=== PATIENT | male | born 1955 | race Caucasian/White ===

== ENCOUNTER 2017-03-14 11:44 | Inpatient (IN) | payer MEDICARE, MEDICAID ==
[2017-03-14] VITALS (9 sets, daily range): BP systolic 111–160; BP diastolic 64–89
[~2017-03-14] VITALS: Ht 188 cm; Wt 182.1 kg
[~2017-03-14 11:44] MED LIST: ATEN50TA PO; ESOM40CA PO; FENO145T38 PO; FURO80TA87 PO; GABA-338 PO; IBUP-1984 PO; LANTUS SUBCUT; LEVO125T PO; MECL12.584 PO; METF500T7 PO; NITR0.4T51 SL; POTA8TAB46 PO; PREG75CA30 PO; RANI300T7 PO; TEMA30CA5 PO
[2017-03-14] MEDS ORDERED: normal saline 1000ML IV soln IVB ONE ×2 (12:00→13:35)
[2017-03-14 12:13] LABS: BASOPHILS # (AUTO) 0.1 X10'3 (0-0.2); BASOPHILS % (AUTO) 0.9 % (0-1); EOSINOPHILS # (AUTO) 0.2 X10'3 (0-0.9); EOSINOPHILS % (AUTO) 1.8 % (0-6); HEMATOCRIT 42.3 % (42.0-52.0); HEMOGLOBIN 14.2 g/dl (14.0-17.9); LYMPHOCYTES # (AUTO) 1.8 X10'3 (1.1-4.8); LYMPHOCYTES % (AUTO) 17.7 % (21-51); MEAN CORPUSCULAR HEMOGLOBIN 27.7 PG (27.0-31.0); MEAN CORPUSCULAR HGB CONC 33.5 % (33.0-36.5); MEAN CORPUSCULAR VOLUME 82.7 FL (78-98); MEAN PLATELET VOLUME 8.5 FL (7.4-10.4); MONOCYTES # (AUTO) 0.7 X10'3 (0-0.9); MONOCYTES % (AUTO) 7.1 % (2-12); NEUTROPHILS # (AUTO) 7.5 X10'3 (1.8-7.7); NEUTROPHILS % (AUTO) 72.5 % (42-75); PLATELET COUNT 286 X10'3 (140-440); RED BLOOD COUNT 5.11 X10'6 (4.70-6.10); RED CELL DISTRIBUTION WIDTH 14.9 % (11.5-14.5); WHITE BLOOD COUNT 10.3 X10'3 (4.5-11.0)
[2017-03-14 12:23] LABS: PARTIAL THROMBOPLASTIN TIME 27 SECONDS (22-32); PROTHROMBIN TIME 10.7 SECONDS (9.0-12.0)
[2017-03-14 12:35] LABS: ALANINE AMINOTRANSFERASE 95 U/L (12-78); ALBUMIN 3.1 G/DL (3.4-5.0); ALKALINE PHOSPHATASE 260 IU/L (46-116); ANION GAP 9 (8-16); ASPARTATE AMINO TRANSFERASE 74 U/L (10-37); BILIRUBIN,TOTAL 4.9 MG/DL (0.1-1.0); BLOOD UREA NITROGEN 20 MG/DL (7-18); BUN/CREATININE RATIO 16.7 (5.4-32.0); CALCIUM 9.5 MG/DL (8.5-10.1); CHLORIDE 102 MMOL/L (99-107); GLUCOSE 120 MG/DL (70-104); MAGNESIUM 1.6 MG/DL (1.5-2.4); POTASSIUM 3.8 MMOL/L (3.5-5.1); SODIUM 141 MMOL/L (135-145); TOTAL CARBON DIOXIDE 29.7 MMOL/L (24-32); eGFR 61 ML/MIN
[2017-03-14 12:36] LABS: ALBUMIN/GLOBULIN RATIO 0.6 (1.1-1.5); TOTAL PROTEIN 7.9 G/DL (6.4-8.2)
[2017-03-14] MEDS ORDERED: ketorolac trometh. 30mg/ml inj. IV ONE (12:45)
[2017-03-14] MEDS ORDERED: HYDROcodone/acetaminophen 5mg/325mg tablet PO ONE (12:45)
[2017-03-14 13:14] LABS: LIPASE 143 U/L (73-393)
[2017-03-14] MEDS ORDERED: HYDROmorphone 2mg/ml vial IV ONE (13:35)
[2017-03-14] MEDS ORDERED: TEMA15CA PO (14:13)
[2017-03-14] MEDS ORDERED: ESOM40CA PO (14:13)
[2017-03-14] MEDS ORDERED: magnesium hydroxide 30ml (MOM) UD suspension PO PRN (14:25)
[2017-03-14] MEDS ORDERED: ondansetron/PF 4mg/2ml inj IV PRN (14:25)
[2017-03-14] MEDS: levoFLOXACIN-Levaquin 500mg/D5 100 ML IV SCH (14:25)
[2017-03-14] MEDS ORDERED: magnesium 4gm in 100ml NS 100 ML IV PRN (14:25)
[2017-03-14] MEDS ORDERED: mag hydrox/Alum hydrox/simeth 30ml oral suspension PO PRN (14:25)
[2017-03-14] MEDS ORDERED: potassium Cl 40MEQ/NS 500ml 500 ML IV PRN ×2 (14:25)
[2017-03-14] MEDS ORDERED: magnesium 2GM in 50ml NS 50 ML IV PRN (14:25)
[2017-03-14] MEDS ORDERED: acetaminophen 325mg tablet PO PRN (14:25)
[2017-03-14] MEDS ORDERED: potassium Cl 20 mEq SR tablet PO PRN ×2 (14:25)
[2017-03-14] MEDS ORDERED: bisacodyl 10mg suppository rectal RC PRN (14:25)
[2017-03-14] MEDS ORDERED: magnesium Cl slow-release 64mg tablet PO PRN (14:25)
[2017-03-14] MEDS ORDERED: morphine 2 MG/ML inj. syringe IV PRN ×2 (14:25)
[2017-03-14] MEDS ORDERED: HYDROcodone/acetaminophen 5mg/325mg tablet PO PRN (14:25)
[2017-03-14] MEDS ORDERED: dextrose 50%-water 50ml dispensing syringe IV PRN ×2 (14:35)
[2017-03-14] MEDS ORDERED: dextrose ORAL solution 15 GM/59 ML bottle PO PRN ×2 (14:35)
[2017-03-14] MEDS ORDERED: glucagon, human recombinant 1mg kit SUBCUT PRN (14:35)
[2017-03-14] MEDS ORDERED: MESSAGE TO PHARMACY PO ONE (14:35)
[2017-03-14] MEDS: pantoprazole 40 MG vial IV SCH (14:40)
[2017-03-14] MEDS ORDERED: meperidine/PF 100mg/ml syringe ONE (15:04)
[2017-03-14] MEDS ORDERED: fentaNYL/PF 50MCG/1 ML 2ML syringe ONE (15:04)
[2017-03-14] MEDS ORDERED: MIDAZolam 1mg/ml 10ml vial ONE (15:04)
[2017-03-14] MEDS ORDERED: diphenhydrAMINE 50 mg/ml inj ONE (15:05)
[2017-03-14] MEDS ORDERED: LIDOcaine Viscous 15ml cup ONE (15:05)
[2017-03-14] MEDS ORDERED: glucagon, human recombinant 1mg kit ONE (15:05)
[2017-03-14] MEDS ORDERED: iohexol 300 MG/1 ML 50ml polymer ONE (15:06)
[2017-03-14 15:46] LABS: HEMOGLOBIN A1C 6.2 % (4.5-6.2)
[2017-03-14] MEDS ORDERED: normal saline 1000ml 1,000 ML IV SCH (15:46)
[2017-03-14] MEDS ORDERED: meperidine/PF 100mg/ml syringe IV PRN (15:50)
[2017-03-14] MEDS ORDERED: MIDAZolam 5mg/5ml vial IV PRN (15:50)
[2017-03-14] MEDS ORDERED: simethicone 40mg/0.6ml oral drops 30ml MC ONE (15:50)
[2017-03-14] MEDS ORDERED: iohexol 300 MG/1 ML 50ml polymer IV ONE (15:50)
[2017-03-14] MEDS ORDERED: fentaNYL/PF 50MCG/1 ML 2ML syringe IV PRN (15:50)
[2017-03-14] MEDS ORDERED: LIDOcaine Viscous 15ml cup PO ONE (15:50)
[2017-03-14] MEDS ORDERED: glucagon, human recombinant 1mg kit IV PRN (15:50)
[2017-03-14] MEDS ORDERED: diphenhydrAMINE 50 mg/ml inj IV ONE (15:50)
[2017-03-14] MEDS: meclizine 12.5mg tablet PO SCH ×2 (19:47→21:00)
[2017-03-14] MEDS: potassium Cl 20mEq in NS 1,000 ML IV SCH (19:47)
[2017-03-14] MEDS: insulin glargine (Lantus) pen - multi-dose SQ SCH (20:00)
[2017-03-14] MEDS: pregabalin 75mg capsule PO SCH (22:06)
[2017-03-14] MEDS: docusate sod 100mg capsule PO SCH (22:06)
[2017-03-14] MEDS: temazepam 15mg capsule PO PRN (23:38)
[2017-03-15] MEDS: potassium Cl 20mEq in NS 1,000 ML IV SCH ×3 (00:24→21:30)
[2017-03-15] MEDS: insulin glargine (Lantus) pen - multi-dose SQ SCH ×2 (07:47→21:32)
[2017-03-15 07:49] VITALS: BP 124/69
[2017-03-15] MEDS: K and/or MAG REPLACEMENT MC SCH (08:00)
[2017-03-15] MEDS: levoFLOXACIN-Levaquin 500mg/D5 100 ML IV SCH (08:11)
[2017-03-15] MEDS: pantoprazole 40 MG vial IV SCH (08:11)
[2017-03-15 09:06] LABS: ALANINE AMINOTRANSFERASE 81 U/L (12-78); ALBUMIN 2.5 G/DL (3.4-5.0); ALKALINE PHOSPHATASE 230 IU/L (46-116); ANION GAP 8 (8-16); ASPARTATE AMINO TRANSFERASE 66 U/L (10-37); BILIRUBIN,TOTAL 6.2 MG/DL (0.1-1.0); BLOOD UREA NITROGEN 17 MG/DL (7-18); CALCIUM 8.4 MG/DL (8.5-10.1); CHLORIDE 104 MMOL/L (99-107); GLUCOSE 124 MG/DL (70-104); LIPASE 118 U/L (73-393); POTASSIUM 3.9 MMOL/L (3.5-5.1); SODIUM 138 MMOL/L (135-145); TOTAL CARBON DIOXIDE 25.8 MMOL/L (24-32); eGFR 75 ML/MIN
[2017-03-15 09:12] LABS: MAGNESIUM 1.5 MG/DL (1.5-2.4)
[2017-03-15 09:15] LABS: ALBUMIN/GLOBULIN RATIO 0.6 (1.1-1.5); TOTAL PROTEIN 6.5 G/DL (6.4-8.2)
[2017-03-15 09:51] LABS: BASOPHILS % (AUTO) 0.5 % (0-1); EOSINOPHILS # (AUTO) 0.1 X10'3 (0-0.9); EOSINOPHILS % (AUTO) 1.2 % (0-6); LYMPHOCYTES # (AUTO) 0.9 X10'3 (1.1-4.8); LYMPHOCYTES % (AUTO) 10.5 % (21-51); MEAN CORPUSCULAR HEMOGLOBIN 28.5 PG (27.0-31.0); MEAN CORPUSCULAR HGB CONC 35.1 % (33.0-36.5); MEAN CORPUSCULAR VOLUME 81.2 FL (78-98); MEAN PLATELET VOLUME 9.4 FL (7.4-10.4); MONOCYTES # (AUTO) 0.9 X10'3 (0-0.9); NEUTROPHILS # (AUTO) 6.6 X10'3 (1.8-7.7); NEUTROPHILS % (AUTO) 76.8 % (42-75); PLATELET COUNT 244 X10'3 (140-440); RED BLOOD COUNT 4.56 X10'6 (4.70-6.10); WHITE BLOOD COUNT 8.6 X10'3 (4.5-11.0)
[2017-03-15] MEDS: meclizine 12.5mg tablet PO SCH ×4 (11:32→21:32)
[2017-03-15] MEDS: levoTHYROXINE 175mcg tablet PO SCH (11:32)
[2017-03-15] MEDS: docusate sod 100mg capsule PO SCH ×2 (11:32→21:30)
[2017-03-15] MEDS: pregabalin 75mg capsule PO SCH ×2 (11:32→21:31)
[2017-03-15] MEDS: fenofibrate 145mg tablet PO SCH (11:36)
[2017-03-15 12:00] VITALS: BP 136/72
[2017-03-15 15:20] VITALS: BP 136/72
[2017-03-15] MEDS: lactobacillus rhamnosus 10,000 MMU CELLS/CAPSULE PO SCH (17:29)
[2017-03-15 19:30] VITALS: BP 118/66
[2017-03-15 23:30] VITALS: BP 116/64
[2017-03-15] MEDS: temazepam 15mg capsule PO PRN (23:34)
[2017-03-16] MEDS: HYDROcodone/acetaminophen 10/325mg tab PO PRN ×2 (02:40→20:10)
[2017-03-16 06:00] LABS: ANION GAP 8 (8-16); BLOOD UREA NITROGEN 12 MG/DL (7-18); BUN/CREATININE RATIO 13.3 (5.4-32.0); CALCIUM 8.5 MG/DL (8.5-10.1); CHLORIDE 106 MMOL/L (99-107); GLUCOSE 162 MG/DL (70-104); POTASSIUM 4.1 MMOL/L (3.5-5.1); SODIUM 140 MMOL/L (135-145); eGFR 85 ML/MIN
[2017-03-16 06:01] LABS: ALANINE AMINOTRANSFERASE 65 U/L (12-78); ALBUMIN 2.4 G/DL (3.4-5.0); ALKALINE PHOSPHATASE 226 IU/L (46-116); ASPARTATE AMINO TRANSFERASE 47 U/L (10-37); BILIRUBIN,TOTAL 4.4 MG/DL (0.1-1.0); MAGNESIUM 1.5 MG/DL (1.5-2.4)
[2017-03-16 06:09] LABS: ALBUMIN/GLOBULIN RATIO 0.6 (1.1-1.5); TOTAL PROTEIN 6.5 G/DL (6.4-8.2)
[2017-03-16 06:34] VITALS: BP 116/64
[2017-03-16 07:00] VITALS: BP 103/69
[2017-03-16] MEDS: levoTHYROXINE 175mcg tablet PO SCH (07:00)
[2017-03-16] MEDS: lactobacillus rhamnosus 10,000 MMU CELLS/CAPSULE PO SCH ×2 (07:30→17:06)
[2017-03-16] MEDS: pantoprazole 40mg Tablet.DR PO SCH (07:30)
[2017-03-16] MEDS: potassium Cl 20mEq in NS 1,000 ML IV SCH ×2 (07:53→17:07)
[2017-03-16] MEDS: meclizine 12.5mg tablet PO SCH ×4 (07:59→20:10)
[2017-03-16] MEDS: pregabalin 75mg capsule PO SCH ×2 (07:59→20:10)
[2017-03-16] MEDS: fenofibrate 145mg tablet PO SCH (07:59)
[2017-03-16] MEDS: docusate sod 100mg capsule PO SCH ×2 (07:59→20:10)
[2017-03-16] MEDS: insulin glargine (Lantus) pen - multi-dose SQ SCH ×2 (07:59→20:00)
[2017-03-16] MEDS ORDERED: BUPIVAcaine/PF 2.5 mg/ml (0.25%) 30ml vial ONE (08:00)
[2017-03-16] MEDS ORDERED: LIDOcaine 1% 30ml vial 30 ML ONE (08:00)
[2017-03-16] MEDS: K and/or MAG REPLACEMENT MC SCH (08:00)
[2017-03-16] MEDS: levoFLOXACIN 500mg tablet PO SCH ×2 (11:00→17:07)
[2017-03-16] MEDS ORDERED: midazolam 2 mg/2 ml injection ONE (11:17)
[2017-03-16] MEDS ORDERED: fentaNYL/PF 50MCG/1 ML 2ML syringe ONE ×2 (11:17→13:19)
[2017-03-16 13:00] VITALS: BP 126/75
[2017-03-16] MEDS ORDERED: etomidate 2mg/ml inj. ONE (13:18)
[2017-03-16] MEDS ORDERED: rocuronium 10mg/ml inj IV ONE (13:18)
[2017-03-16] MEDS ORDERED: LIDOcaine 2% (20mg/ml) 5ml vial ONE (13:18)
[2017-03-16] MEDS ORDERED: aminophylline 250mg/10ml inj. IV PRN (15:10)
[2017-03-16] MEDS ORDERED: regadenoson 0.4mg/5ml syringe IV ONE (15:10)
[2017-03-16] MEDS ORDERED: nitroGLYCERIN 0.4mg SUBLingual tab SL PRN (15:10)
[2017-03-16] MEDS ORDERED: metoprolol tartrate 1mg/ml inj IV PRN (15:10)
[2017-03-16] MEDS ORDERED: morphine 5 MG/ML injection IV PRN (16:21)
[2017-03-16 20:00] VITALS: BP 131/70
[2017-03-16] MEDS: temazepam 15mg capsule PO PRN (23:10)
[2017-03-16 23:30] VITALS: BP 116/67
[2017-03-17] VITALS (12 sets, daily range): BP systolic 94–137; BP diastolic 56–78
[2017-03-17] MEDS: potassium Cl 20mEq in NS 1,000 ML IV SCH ×3 (03:07→22:24)
[2017-03-17 06:41] LABS: ALANINE AMINOTRANSFERASE 57 U/L (12-78); ALBUMIN 2.5 G/DL (3.4-5.0); ALBUMIN/GLOBULIN RATIO 0.6 (1.1-1.5); ALKALINE PHOSPHATASE 203 IU/L (46-116); ANION GAP 6 (8-16); ASPARTATE AMINO TRANSFERASE 33 U/L (10-37); BILIRUBIN,TOTAL 2.8 MG/DL (0.1-1.0); BLOOD UREA NITROGEN 10 MG/DL (7-18); BUN/CREATININE RATIO 11.1 (5.4-32.0); CALCIUM 8.4 MG/DL (8.5-10.1); CHLORIDE 104 MMOL/L (99-107); GLUCOSE 136 MG/DL (70-104); MAGNESIUM 1.4 MG/DL (1.5-2.4); POTASSIUM 3.8 MMOL/L (3.5-5.1); SODIUM 139 MMOL/L (135-145); TOTAL CARBON DIOXIDE 29.1 MMOL/L (24-32); TOTAL PROTEIN 6.7 G/DL (6.4-8.2); eGFR 85 ML/MIN
[2017-03-17] MEDS: levoTHYROXINE 175mcg tablet PO SCH (07:00)
[2017-03-17] MEDS: lactobacillus rhamnosus 10,000 MMU CELLS/CAPSULE PO SCH ×2 (07:30→17:46)
[2017-03-17] MEDS: pantoprazole 40mg Tablet.DR PO SCH (07:30)
[2017-03-17] MEDS: meclizine 12.5mg tablet PO SCH ×4 (07:31→21:00)
[2017-03-17] MEDS: pregabalin 75mg capsule PO SCH ×2 (07:32→21:01)
[2017-03-17] MEDS: fenofibrate 145mg tablet PO SCH (07:32)
[2017-03-17] MEDS: insulin glargine (Lantus) pen - multi-dose SQ SCH ×2 (07:32→20:00)
[2017-03-17] MEDS: docusate sod 100mg capsule PO SCH ×2 (07:32→21:01)
[2017-03-17] MEDS: K and/or MAG REPLACEMENT MC SCH (08:00)
[2017-03-17] MEDS ORDERED: aminophylline inj. 10 ML IV ONE (08:51)
[2017-03-17] MEDS ORDERED: regadenoson 0.4mg/5ml syringe IV ONE (08:51)
[2017-03-17] MEDS: levoFLOXACIN 500mg tablet PO SCH (11:56)
[2017-03-17] MEDS ORDERED: clindamycin-Cleocin 900mg/D5W 50 ML IV ONE (18:25)
[2017-03-17] MEDS ORDERED: potassium Cl 40MEQ/NS 500ml 500 ML IV PRN ×2 (23:45)
[2017-03-17] MEDS ORDERED: magnesium 4gm in 100ml NS 100 ML IV PRN (23:45)
[2017-03-17] MEDS ORDERED: magnesium 2GM in 50ml NS 50 ML IV PRN (23:45)
[2017-03-17] MEDS ORDERED: potassium Cl 20 mEq SR tablet PO PRN ×2 (23:45)
[2017-03-18] VITALS (19 sets, daily range): BP systolic 104–148; BP diastolic 53–92
[2017-03-18] MEDS: HYDROcodone/acetaminophen 10/325mg tab PO PRN ×3 (00:04→23:32)
[2017-03-18] MEDS: temazepam 15mg capsule PO PRN ×2 (00:04→23:32)
[2017-03-18] MEDS: magnesium Cl slow-release 64mg tablet PO PRN (00:05)
[2017-03-18] MEDS: potassium Cl 20mEq in NS 1,000 ML IV SCH ×2 (04:49→18:24)
[2017-03-18 06:31] LABS: ALANINE AMINOTRANSFERASE 52 U/L (12-78); ALBUMIN 2.6 G/DL (3.4-5.0); ALBUMIN/GLOBULIN RATIO 0.6 (1.1-1.5); ALKALINE PHOSPHATASE 191 IU/L (46-116); ASPARTATE AMINO TRANSFERASE 27 U/L (10-37); BILIRUBIN,TOTAL 2.3 MG/DL (0.1-1.0); BLOOD UREA NITROGEN 12 MG/DL (7-18); BUN/CREATININE RATIO 13.3 (5.4-32.0); CALCIUM 8.9 MG/DL (8.5-10.1); GLUCOSE 172 MG/DL (70-104); MAGNESIUM 1.5 MG/DL (1.5-2.4); TOTAL PROTEIN 6.9 G/DL (6.4-8.2); eGFR 85 ML/MIN
[2017-03-18] MEDS: levoTHYROXINE 175mcg tablet PO SCH (07:00)
[2017-03-18 07:14] LABS: ANION GAP 5 (8-16); CHLORIDE 103 MMOL/L (99-107); POTASSIUM 3.8 MMOL/L (3.5-5.1); SODIUM 139 MMOL/L (135-145)
[2017-03-18] MEDS: lactobacillus rhamnosus 10,000 MMU CELLS/CAPSULE PO SCH ×2 (07:30→17:29)
[2017-03-18] MEDS: pantoprazole 40mg Tablet.DR PO SCH (07:30)
[2017-03-18] MEDS: docusate sod 100mg capsule PO SCH ×2 (08:00→21:03)
[2017-03-18] MEDS: pregabalin 75mg capsule PO SCH ×2 (08:00→21:02)
[2017-03-18] MEDS: fenofibrate 145mg tablet PO SCH (08:00)
[2017-03-18] MEDS: K and/or MAG REPLACEMENT MC SCH (08:00)
[2017-03-18] MEDS: meclizine 12.5mg tablet PO SCH ×4 (08:00→21:02)
[2017-03-18] MEDS: insulin glargine (Lantus) pen - multi-dose SQ SCH ×2 (08:00→21:06)
[2017-03-18] MEDS ORDERED: clindamycin-Cleocin 900mg/D5W 50 ML IV ONE (08:05)
[2017-03-18] MEDS ORDERED: LIDOcaine 1% 30ml vial 30 ML ONE (09:28)
[2017-03-18] MEDS ORDERED: BUPIVAcaine/PF 2.5 mg/ml (0.25%) 30ml vial ONE (09:28)
[2017-03-18] MEDS ORDERED: meperidine/PF 25mg/ml syringe IV PRN ×3 (09:30)
[2017-03-18] MEDS ORDERED: ringers solution, lacted 1,000 ML IV SCH (09:30)
[2017-03-18] MEDS ORDERED: ondansetron/PF 4mg/2ml inj IV PRN (09:30)
[2017-03-18] MEDS ORDERED: morphine 2 MG/ML inj. syringe IV PRN ×2 (09:30)
[2017-03-18] MEDS ORDERED: proCHLORperazine 10 MG/2 ml inj IV PRN (09:30)
[2017-03-18] MEDS ORDERED: fentaNYL/PF 50MCG/1 ML 2ML syringe ONE (09:36)
[2017-03-18] MEDS ORDERED: midazolam 2 mg/2 ml injection ONE (09:37)
[2017-03-18] MEDS ORDERED: LIDOcaine 2% (20mg/ml) 5ml vial ONE (09:41)
[2017-03-18] MEDS ORDERED: succinylcholine 20mg/ml inj IV ONE (09:41)
[2017-03-18] MEDS ORDERED: propofol inj 20 ML IV ONE (09:41)
[2017-03-18] MEDS ORDERED: sevoflurane 250ml liquid IH ONE (10:00)
[2017-03-18] MEDS ORDERED: clindamycin phosphate 150mg/ml inj. ONE (10:33)
[2017-03-18] MEDS ORDERED: LIDOcaine 1% 30ml vial IJ ONE (10:56)
[2017-03-18] MEDS: levoFLOXACIN 500mg tablet PO SCH (11:00)
[2017-03-18] MEDS ORDERED: ondansetron/PF 4mg/2ml inj ONE (11:39)
[2017-03-18] MEDS ORDERED: ePHEDrine 50MG/ML INJ. ONE (11:39)
[2017-03-18] MEDS ORDERED: neostigmine methylsulfate 1 MG/ML 10ml vial ONE (11:39)
[2017-03-18] MEDS ORDERED: glycopyrrolate 0.2mg/ml inj ONE (11:39)
[2017-03-18] MEDS ORDERED: HYDROcodone/acetaminophen 5mg/325mg tablet PO PRN (12:05)
[2017-03-18] MEDS: morphine 5 MG/ML injection IV PRN (19:44)
[2017-03-19] VITALS (8 sets, daily range): BP systolic 99–135; BP diastolic 53–68
[2017-03-19] MEDS: potassium Cl 20mEq in NS 1,000 ML IV SCH ×2 (02:53→14:24)
[2017-03-19] MEDS: morphine 5 MG/ML injection IV PRN (03:01)
[2017-03-19 06:51] LABS: ALANINE AMINOTRANSFERASE 52 U/L (12-78); ALBUMIN 2.7 G/DL (3.4-5.0); ALBUMIN/GLOBULIN RATIO 0.7 (1.1-1.5); ALKALINE PHOSPHATASE 177 IU/L (46-116); ANION GAP 9 (8-16); ASPARTATE AMINO TRANSFERASE 43 U/L (10-37); BILIRUBIN,TOTAL 2.3 MG/DL (0.1-1.0); BLOOD UREA NITROGEN 10 MG/DL (7-18); BUN/CREATININE RATIO 11.1 (5.4-32.0); CHLORIDE 101 MMOL/L (99-107); GLUCOSE 197 MG/DL (70-104); MAGNESIUM 1.2 MG/DL (1.5-2.4); SODIUM 138 MMOL/L (135-145); TOTAL CARBON DIOXIDE 27.6 MMOL/L (24-32); TOTAL PROTEIN 6.8 G/DL (6.4-8.2); eGFR 85 ML/MIN
[2017-03-19] MEDS ORDERED: magnesium 4gm in 100ml NS 100 ML IV PRN ×2 (07:00→07:15)
[2017-03-19] MEDS ORDERED: potassium Cl 40MEQ/NS 500ml 500 ML IV PRN ×4 (07:00→07:15)
[2017-03-19] MEDS ORDERED: magnesium Cl slow-release 64mg tablet PO PRN ×2 (07:00→07:15)
[2017-03-19] MEDS ORDERED: magnesium 2GM in 50ml NS 50 ML IV PRN ×2 (07:00→07:15)
[2017-03-19] MEDS ORDERED: potassium Cl 20 mEq SR tablet PO PRN ×4 (07:00→07:15)
[2017-03-19] MEDS: meclizine 12.5mg tablet PO SCH ×2 (07:04→12:42)
[2017-03-19] MEDS: pregabalin 75mg capsule PO SCH (07:04)
[2017-03-19] MEDS: insulin glargine (Lantus) pen - multi-dose SQ SCH (07:04)
[2017-03-19] MEDS: pantoprazole 40mg Tablet.DR PO SCH (07:04)
[2017-03-19] MEDS: docusate sod 100mg capsule PO SCH (07:04)
[2017-03-19] MEDS: lactobacillus rhamnosus 10,000 MMU CELLS/CAPSULE PO SCH (07:04)
[2017-03-19] MEDS: levoTHYROXINE 175mcg tablet PO SCH (07:05)
[2017-03-19] MEDS: fenofibrate 145mg tablet PO SCH (07:05)
[2017-03-19] MEDS: magnesium Cl slow-release 64mg tablet PO PRN (07:07)
[2017-03-19] MEDS: K and/or MAG REPLACEMENT MC SCH (07:10)
[2017-03-19] MEDS: insulin Lispro (HumaLOG) vial - multi-dose SQ SCH ×2 (08:05→13:29)
[2017-03-19] MEDS: HYDROcodone/acetaminophen 10/325mg tab PO PRN (10:00)
[2017-03-19] MEDS ORDERED: HYDR-569 PO ×2 (12:11→12:13)
[2017-03-19] MEDS: levoFLOXACIN 500mg tablet PO SCH (12:42)
[2017-03-19] MEDS ORDERED: magnesium oxide 400mg tablet PO ONE (14:05)
== END 2017-03-19 15:30 | disposition home or self-care (01) | DRG 335 ==
LOC: ER 11:45 → ED HOLD 13:34 → EDBEDREQ 21:50 → MED 3N 22:44
PROVIDERS: ADMIT Internal Medicine; ATTEND Internal Medicine
PROC: 0FC98ZZ Extirpation of Matter from Common Bile Duct, Via Natural or Artificial Opening Endoscopic (ICD-10-PCS; 2017-03-14)
PROC: 0F798DZ Dilation of Common Bile Duct with Intraluminal Device, Via Natural or Artificial Opening Endoscopic (ICD-10-PCS; 2017-03-14)
PROC: BF131ZZ Fluoroscopy of Gallbladder and Bile Ducts using Low Osmolar Contrast (ICD-10-PCS; 2017-03-14)
PROC: 4A02XM4 Measurement of Cardiac Total Activity, External Approach (ICD-10-PCS; 2017-03-17)
PROC: 3E073KZ Introduction of Other Diagnostic Substance into Coronary Artery, Percutaneous Approach (ICD-10-PCS; 2017-03-17)
PROC: 0FT44ZZ Resection of Gallbladder, Percutaneous Endoscopic Approach (ICD-10-PCS; 2017-03-18)
PROC: 0DNU4ZZ Release Omentum, Percutaneous Endoscopic Approach (ICD-10-PCS; 2017-03-18)
PROC: 0WQF0ZZ Repair Abdominal Wall, Open Approach (ICD-10-PCS; principal; 2017-03-18 10:03)
DX: K42.0 Umbilical hernia with obstruction, without gangrene (principal); E43 Unspecified severe protein-calorie malnutrition; E66.01 Morbid (severe) obesity due to excess calories; I11.0 Hypertensive heart disease with heart failure; I50.9 Heart failure, unspecified; K80.31 Calculus of bile duct with cholangitis, unspecified, with obstruction; K80.70 Calculus of gallbladder and bile duct without cholecystitis without obstruction; Z68.43 Body mass index [BMI] 50.0-59.9, adult; E86.0 Dehydration; E11.9 Type 2 diabetes mellitus without complications; Z96.653 Presence of artificial knee joint, bilateral; J45.909 Unspecified asthma, uncomplicated; E03.9 Hypothyroidism, unspecified; R07.89 Other chest pain; K21.9 Gastro-esophageal reflux disease without esophagitis; K66.0 Peritoneal adhesions (postprocedural) (postinfection); Z60.2 Problems related to living alone; Z56.0 Unemployment, unspecified; Z88.0 Allergy status to penicillin; Z79.899 Other long term (current) drug therapy; Z79.4 Long term (current) use of insulin; Z82.41 Family history of sudden cardiac death; Z82.49 Family history of ischemic heart disease and other diseases of the circulatory system; Z80.9 Family history of malignant neoplasm, unspecified
CPT/HCPCS: 36415; 43274; 71045; 76700; 78452; 80053; 82948; 83036; 83690; 83735; 83880; 84443; 84484; 85025; 85610; 85730; 87070; 88304; 93005; 93017; 96374; 99285; A4620; A7000; A9500; C9113; G0500; J0280; J0330; J1170; J1200; J1610; J1815; J1885; J1956; J2001; J2175; J2250; J2270; J2405; J2704; J2710; J3010; J3490; J7030; J7120; J8597; Q9967

== ENCOUNTER 2019-05-19 11:59 | Emergency (ER) | payer BC, MEDICAID ==
[~2019-05-19] VITALS: Ht 188 cm; Wt 156.8 kg
[~2019-05-19 11:59] MED LIST changes: -ATEN50TA PO; -ESOM40CA PO; +HYDR-4383 PO; +MECL-184 PO; -MECL12.584 PO; +METF500T20 PO; -METF500T7 PO; -NITR0.4T51 SL; +TEMA15CA PO; -TEMA30CA5 PO
[2019-05-19] MEDS ORDERED: SULF1TAB49 PO (12:47)
[2019-05-19] MEDS ORDERED: CEPH-572 PO (12:47)
[2019-05-19] MEDS ORDERED: TETanus/Pertussis (Acell)/Diphther VAC/PF (Tdap-Adult) 0.5ml syringe IMVAC ONE (12:50)
[2019-05-19] MEDS ORDERED: cephalexin 250mg capsule PO ONE (12:50)
[2019-05-19] MEDS ORDERED: acetaminophen 325mg tablet PO ONE (13:05)
[2019-05-19 13:30] VITALS: BP 128/75
[2019-05-19] MEDS ORDERED: MYCOL30CR TP (13:42)
== END 2019-05-19 14:19 | disposition home or self-care (01) ==
LOC: ER 11:59
DX: S90.425A Blister (nonthermal), left lesser toe(s), initial encounter (principal); E11.9 Type 2 diabetes mellitus without complications; I50.9 Heart failure, unspecified; I11.0 Hypertensive heart disease with heart failure; J45.909 Unspecified asthma, uncomplicated; K21.9 Gastro-esophageal reflux disease without esophagitis; E03.9 Hypothyroidism, unspecified; G89.29 Other chronic pain; Z98.890 Other specified postprocedural states; Z60.2 Problems related to living alone; Z56.0 Unemployment, unspecified; Z88.0 Allergy status to penicillin; Z79.2 Long term (current) use of antibiotics; Z79.4 Long term (current) use of insulin; Z79.899 Other long term (current) drug therapy; X58.XXXA Exposure to other specified factors, initial encounter; Y93.89 Activity, other specified; Y92.89 Other specified places as the place of occurrence of the external cause; Y99.8 Other external cause status
CPT/HCPCS: 73660; 87070; 87077; 87186; 90471; 90715; 99284

== ENCOUNTER 2020-02-25 09:16 | Emergency (ER) | payer BC, MEDICAID ==
[~2020-02-25] VITALS: Ht 188 cm; Wt 149.8 kg
[~2020-02-25 09:16] MED LIST changes: +METF-900 PO; -METF500T20 PO; +MYCOL30CR TP
[2020-02-25] MEDS ORDERED: potassium Cl 20 mEq SR tablet PO STA (09:24)
[2020-02-25 09:57] LABS: BASOPHILS # (AUTO) 0.1 X10'3 (0-0.2); EOSINOPHILS # (AUTO) 0.1 X10'3 (0-0.9); EOSINOPHILS % (AUTO) 1.1 % (0-6); LYMPHOCYTES # (AUTO) 1.5 X10'3 (1.1-4.8); MEAN CORPUSCULAR HEMOGLOBIN 27.5 PG (27.0-31.0); MEAN CORPUSCULAR HGB CONC 32.6 g/dL (33.0-36.5); MEAN CORPUSCULAR VOLUME 84.6 FL (78-98); MEAN PLATELET VOLUME 9.3 FL (7.4-10.4); MONOCYTES # (AUTO) 0.6 X10'3 (0-0.9); MONOCYTES % (AUTO) 10.9 % (2-12); NEUTROPHILS # (AUTO) 3.1 X10'3 (1.8-7.7); PLATELET COUNT 183 X10'3 (140-440); RED BLOOD COUNT 5.09 X10'6 (4.70-6.10); RED CELL DISTRIBUTION WIDTH 12.6 % (11.5-14.5); WHITE BLOOD COUNT 5.2 X10'3 (4.5-11.0)
[2020-02-25 10:09] LABS: ALANINE AMINOTRANSFERASE 15 U/L (12-78); ALBUMIN 3.1 G/DL (3.4-5.0); ALBUMIN/GLOBULIN RATIO 0.9 (1.1-1.5); ALKALINE PHOSPHATASE 138 IU/L (46-116); ANION GAP 10 (8-16); ASPARTATE AMINO TRANSFERASE 5 U/L (10-37); BILIRUBIN,TOTAL 0.7 MG/DL (0.1-1.0); BLOOD UREA NITROGEN 21 MG/DL (7-18); BUN/CREATININE RATIO 15.4 (5.4-32.0); CALCIUM 7.3 MG/DL (8.5-10.1); CHLORIDE 93 MMOL/L (99-107); CREATININE 1.36 MG/DL (0.60-1.10); POTASSIUM 3.6 MMOL/L (3.5-5.1); SODIUM 129 MMOL/L (135-145); TOTAL CARBON DIOXIDE 26.2 MMOL/L (24-32); TOTAL PROTEIN 6.4 G/DL (6.4-8.2); eGFR 52 ML/MIN
[2020-02-25 10:14] LABS: CLARITY,URINE CLEAR (Clear); COLOR,URINE YELLOW (Yellow); GLUCOSE, URINE >=1000 mg/dl (Neg); KETONES,URINE NEGATIVE (Neg); LEUKOCYTE ESTERASE ,URINE NEGATIVE (Neg); NITRITES, URINE NEGATIVE (Neg); OCCULT BLOOD,URINE NEGATIVE (Neg); PROTEIN,URINE NEGATIVE (Neg); UA COLLECTION TYPE URINAL; UROBILINOGEN,URINE 0.2 E.U/dL (0.2-1.0)
[2020-02-25 10:17] LABS: MAGNESIUM 1.7 MG/DL (1.5-2.4)
[2020-02-25 10:23] LABS: BACTERIA,URINE NONE SEEN /HPF (Neg); RBC,URINE NONE SEEN /HPF (0-2); SQUAMOUS EPITHELIAL CELL,UR NONE SEEN /LPF (FEW); WBC,URINE NONE SEEN /HPF (0-4); YEAST FEW /HPF (NEGATIVE)
[2020-02-25] MEDS ORDERED: insulin regular, human 10 units/0.1 ml syringe SQ ONE ×2 (10:35→12:05)
[2020-02-25] MEDS ORDERED: normal saline 1000ML IV soln IVB ONE (10:35)
[2020-02-25] MEDS ORDERED: CHOL10006 PO (11:23)
[2020-02-25] MEDS ORDERED: AMIT25TA10 PO (14:03)
[2020-02-25] MEDS ORDERED: ASPI-920 PO (14:03)
[2020-02-25] MEDS ORDERED: ATOR40TA PO (14:03)
[2020-02-25] MEDS ORDERED: MYCOL30CR TP (14:03)
[2020-02-25] MEDS ORDERED: LIRA0.6P2 SUBCUT (14:04)
[2020-02-25] MEDS ORDERED: HYDR-4353 PO (14:04)
[2020-02-25] MEDS ORDERED: IBUP-1984 PO (14:04)
[2020-02-25 14:35] LABS: ETHANOL < 0.010 GM/DL (0.0-0.010)
[2020-02-25 14:38] LABS: URINE AMPHETAMINE SCREEN NEGATIVE (Neg); URINE BARBITUATE SCREEN NEGATIVE (Neg); URINE BENZODIAZEPINES SCREEN NEGATIVE (Neg); URINE CANNABINOID SCREEN NEGATIVE (Neg); URINE COCAINE SCREEN NEGATIVE (Neg); URINE METHADONE SCREEN NEGATIVE (Neg); URINE OPIATE SCREEN NEGATIVE (Neg); URINE PHENCYCLIDINE SCREEN NEGATIVE (Neg)
[2020-02-25 15:38] VITALS: BP 109/74
[2020-02-27 02:25] LABS: GLUCOSE 806 MG/DL (70-104)
== END 2020-02-25 15:40 | disposition home or self-care (01) ==
LOC: ER 09:16
DX: S90.511A Abrasion, right ankle, initial encounter (principal); E11.65 Type 2 diabetes mellitus with hyperglycemia; E11.00 Type 2 diabetes mellitus with hyperosmolarity without nonketotic hyperglycemic-hyperosmolar coma (NKHHC); R55 Syncope and collapse; M25.561 Pain in right knee; I11.0 Hypertensive heart disease with heart failure; I50.9 Heart failure, unspecified; J45.909 Unspecified asthma, uncomplicated; E03.9 Hypothyroidism, unspecified; G89.29 Other chronic pain; Z98.890 Other specified postprocedural states; Z60.2 Problems related to living alone; Z56.0 Unemployment, unspecified; Z88.0 Allergy status to penicillin; Z79.82 Long term (current) use of aspirin; Z79.4 Long term (current) use of insulin; Z79.899 Other long term (current) drug therapy; W18.39XA Other fall on same level, initial encounter; Y93.89 Activity, other specified; Y92.89 Other specified places as the place of occurrence of the external cause; Y99.8 Other external cause status
CPT/HCPCS: 36415; 73610; 80053; 80305; 80320; 81001; 82948; 83735; 83880; 84484; 85025; 85610; 93005; 96360; 96361; 99285; J1815; J7030

== ENCOUNTER 2020-03-27 11:41 | Emergency (ER) | payer BC, MEDICAID ==
[~2020-03-27] VITALS: Ht 188 cm; Wt 148.2 kg
[~2020-03-27 11:41] MED LIST changes: +AMIT25TA10 PO; +ASPI-920 PO; +ATOR40TA PO; -FENO145T38 PO; -FURO80TA87 PO; -GABA-338 PO; +HYDR-4353 PO; -HYDR-4383 PO; -LANTUS SUBCUT; -LEVO125T PO; +LIRA0.6P2 SUBCUT; -MECL-184 PO; -METF-900 PO; -POTA8TAB46 PO; -PREG75CA30 PO; -RANI300T7 PO; -TEMA15CA PO
[2020-03-27 13:03] LABS: BASOPHILS # (AUTO) 0.1 X10'3 (0-0.2); EOSINOPHILS # (AUTO) 0.1 X10'3 (0-0.9); EOSINOPHILS % (AUTO) 0.9 % (0-6); HEMATOCRIT 44.6 % (42.0-52.0); HEMOGLOBIN 14.9 g/dl (14.0-17.9); LYMPHOCYTES # (AUTO) 1.7 X10'3 (1.1-4.8); LYMPHOCYTES % (AUTO) 26.9 % (21-51); MEAN CORPUSCULAR HEMOGLOBIN 28.3 PG (27.0-31.0); MEAN CORPUSCULAR HGB CONC 33.3 g/dL (33.0-36.5); MEAN CORPUSCULAR VOLUME 84.8 FL (78-98); MEAN PLATELET VOLUME 8.9 FL (7.4-10.4); MONOCYTES # (AUTO) 0.5 X10'3 (0-0.9); MONOCYTES % (AUTO) 8.6 % (2-12); NEUTROPHILS # (AUTO) 3.9 X10'3 (1.8-7.7); NEUTROPHILS % (AUTO) 62.6 % (42-75); PLATELET COUNT 213 X10'3 (140-440); RED BLOOD COUNT 5.26 X10'6 (4.70-6.10); RED CELL DISTRIBUTION WIDTH 13.3 % (11.5-14.5); WHITE BLOOD COUNT 6.2 X10'3 (4.5-11.0)
[2020-03-27 13:20] LABS: ALANINE AMINOTRANSFERASE 17 U/L (12-78); ALBUMIN 3.6 G/DL (3.4-5.0); ALBUMIN/GLOBULIN RATIO 0.9 (1.1-1.5); ALKALINE PHOSPHATASE 106 IU/L (46-116); ANION GAP 5 (8-16); ASPARTATE AMINO TRANSFERASE 11 U/L (10-37); BILIRUBIN,TOTAL 0.7 MG/DL (0.1-1.0); BLOOD UREA NITROGEN 12 MG/DL (7-18); BUN/CREATININE RATIO 10.8 (5.4-32.0); CALCIUM 9.5 MG/DL (8.5-10.1); CHLORIDE 94 MMOL/L (99-107); CREATININE 1.11 MG/DL (0.60-1.10); MAGNESIUM 1.6 MG/DL (1.5-2.4); POTASSIUM 3.6 MMOL/L (3.5-5.1); SODIUM 130 MMOL/L (135-145); TOTAL PROTEIN 7.4 G/DL (6.4-8.2); eGFR 66 ML/MIN
[2020-03-27] MEDS ORDERED: potassium Cl 10 mEq/100mL bag IV ONE (13:25)
[2020-03-27] MEDS ORDERED: normal saline 1000ML IV soln IVB ONE (13:25)
[2020-03-27] MEDS ORDERED: insulin regular, human 10 units/0.1 ml syringe IV ONE (13:25)
[2020-03-27 13:27] LABS: GLUCOSE 622 MG/DL (70-104)
[2020-03-27 16:50] VITALS: BP 124/86
== END 2020-03-27 16:51 | disposition home or self-care (01) ==
LOC: ER 11:41
DX: E11.65 Type 2 diabetes mellitus with hyperglycemia (principal); R07.89 Other chest pain; R10.13 Epigastric pain; I11.0 Hypertensive heart disease with heart failure; I50.9 Heart failure, unspecified; J45.909 Unspecified asthma, uncomplicated; K21.9 Gastro-esophageal reflux disease without esophagitis; E03.9 Hypothyroidism, unspecified; G89.29 Other chronic pain; Z98.890 Other specified postprocedural states; Z56.0 Unemployment, unspecified; Z88.0 Allergy status to penicillin; Z79.82 Long term (current) use of aspirin; Z79.899 Other long term (current) drug therapy
CPT/HCPCS: 36415; 71045; 80053; 82948; 83735; 84484; 85025; 93005; 96361; 96374; 99285; J1815; J3480; J7030

== ENCOUNTER 2020-12-12 22:05 | Inpatient (IN) | payer BC, MEDICAID ==
[~2020-12-12] VITALS: Ht 188 cm; Wt 155.0 kg
[2020-12-13 00:41] LABS: BASOPHILS # (AUTO) 0.1 X10'3 (0-0.2); BASOPHILS % (AUTO) 0.8 % (0-1); EOSINOPHILS # (AUTO) 0.1 X10'3 (0-0.9); EOSINOPHILS % (AUTO) 0.5 % (0-6); LYMPHOCYTES # (AUTO) 2.1 X10'3 (1.1-4.8); LYMPHOCYTES % (AUTO) 19.2 % (21-51); MEAN CORPUSCULAR HEMOGLOBIN 27.9 PG (27.0-31.0); MEAN CORPUSCULAR HGB CONC 34.1 g/dL (33.0-36.5); MEAN CORPUSCULAR VOLUME 81.9 FL (78-98); MEAN PLATELET VOLUME 8.5 FL (7.4-10.4); MONOCYTES # (AUTO) 1.1 X10'3 (0-0.9); MONOCYTES % (AUTO) 10.4 % (2-12); NEUTROPHILS # (AUTO) 7.6 X10'3 (1.8-7.7); NEUTROPHILS % (AUTO) 69.1 % (42-75); PLATELET COUNT 290 X10'3 (140-440); RED BLOOD COUNT 6.47 X10'6 (4.70-6.10); RED CELL DISTRIBUTION WIDTH 14.2 % (11.5-14.5)
[2020-12-13 00:46] LABS: HEMOGLOBIN 18.1 g/dl (14.0-17.9)
[2020-12-13 00:57] LABS: ALANINE AMINOTRANSFERASE 36 U/L (12-78); ALBUMIN 4.3 G/DL (3.4-5.0); ALBUMIN/GLOBULIN RATIO 0.9 (1.1-1.5); ALKALINE PHOSPHATASE 57 IU/L (46-116); ANION GAP 12 (8-16); BILIRUBIN,TOTAL 0.9 MG/DL (0.1-1.0); BLOOD UREA NITROGEN 59 MG/DL (7-18); BUN/CREATININE RATIO 26.7 (5.4-32.0); CALCIUM 9.3 MG/DL (8.5-10.1); CHLORIDE 97 MMOL/L (99-107); CREATININE 2.21 MG/DL (0.60-1.10); GLUCOSE 165 MG/DL (70-104); SODIUM 136 MMOL/L (135-145); TOTAL CARBON DIOXIDE 26.7 MMOL/L (24-32); TOTAL PROTEIN 8.9 G/DL (6.4-8.2); eGFR 30 ML/MIN
[2020-12-13 00:59] LABS: PARTIAL THROMBOPLASTIN TIME 29 SECONDS (22-32)
[2020-12-13 01:04] LABS: MAGNESIUM 2.1 MG/DL (1.5-2.4)
[2020-12-13 01:05] LABS: ASPARTATE AMINO TRANSFERASE 31 U/L (10-37); POTASSIUM 3.9 MMOL/L (3.5-5.1)
[2020-12-13] MEDS ORDERED: potassium Cl 20 mEq SR tablet PO PRN ×2 (02:20)
[2020-12-13] MEDS ORDERED: ondansetron/PF 4mg/2ml inj IV PRN (02:20)
[2020-12-13] MEDS ORDERED: potassium Cl 40MEQ/1/2NS 520ml 520 ML IV PRN ×2 (02:20)
[2020-12-13] MEDS ORDERED: magnesium 2GM in 50ml NS 50 ML IV PRN (02:20)
[2020-12-13] MEDS ORDERED: morphine 2 MG/ML inj. syringe IV PRN (02:20)
[2020-12-13] MEDS ORDERED: PERFLUTREN PROTEIN-A MICROSPHR (Optison) 0.22 MG/ML 3ML VIAL IV PRN (02:20)
[2020-12-13] MEDS ORDERED: magnesium Cl slow-release 64mg tablet PO PRN (02:20)
[2020-12-13] MEDS ORDERED: HYDROcodone/acetaminophen 5mg/325mg tablet PO PRN (02:20)
[2020-12-13] MEDS ORDERED: magnesium 4gm in 100ml NS 100 ML IV PRN (02:20)
[2020-12-13] MEDS ORDERED: acetaminophen 325mg tablet PO PRN ×2 (02:20)
[2020-12-13] MEDS ORDERED: glucagon, human recombinant 1mg kit SUBCUT PRN (02:25)
[2020-12-13] MEDS ORDERED: dextrose 50%-water 50ml dispensing syringe IV PRN ×2 (02:25)
[2020-12-13] MEDS ORDERED: insulin Lispro (HumaLOG) vial - multi-dose SQ SCH (02:25)
[2020-12-13] MEDS ORDERED: MESSAGE TO PHARMACY PO ONE (02:25)
[2020-12-13] MEDS ORDERED: dextrose ORAL solution 15 GM/59 ML bottle PO PRN ×2 (02:25)
[2020-12-13 02:46] LABS: HEMOGLOBIN A1C 7.2 % (4.5-6.2)
[2020-12-13] MEDS: normal saline 1000ml 1,000 ML IV SCH ×4 (02:54→22:20)
[2020-12-13] MEDS ORDERED: FURO-149 PO (03:21)
--- NOTE | 2020-12-13 04:25 | NUR ---
notified dr aaron about low blood pressure, no change in order
[2020-12-13] MEDS ORDERED: normal saline 1000ml 1,000 ML IV ONE (04:30)
--- NOTE | 2020-12-13 04:32 | NUR ---
new order put after call per dr aaron one time dose NS @ 1000
[2020-12-13] MEDS ORDERED: FURO40TA4 PO (04:51)
[2020-12-13] MEDS ORDERED: IBUP-1985 PO (04:51)
[2020-12-13] MEDS: K and/or MAG REPLACEMENT MC SCH ×2 (06:56→20:00)
[2020-12-13] MEDS: atorvastatin 20mg tablet PO SCH (07:50)
[2020-12-13] MEDS: aspirin 81mg, enteric-coated 1 TAB TABLET.DR PO SCH (07:50)
[2020-12-13] MEDS: heparin, porcine 5000 units/ml vial SQ SCH ×2 (07:51→20:32)
[2020-12-13] MEDS ORDERED: nitroGLYCERIN 0.4mg SUBLingual tab SL PRN (08:35)
[2020-12-13] MEDS ORDERED: metoprolol tartrate 1mg/ml inj IV PRN (08:35)
[2020-12-13] MEDS ORDERED: regadenoson 0.4mg/5ml syringe IV ONE (08:35)
[2020-12-13] MEDS ORDERED: aminophylline 250mg/10ml inj. IV PRN (08:35)
--- NOTE | 2020-12-13 10:00 | NUR ---
PT IN [facility] FOR LEXISCAN TEST ORDERED. PT DIZZY AND LIGHT HEADED UPON POSITION CHANGES. PT HYPOTENSIVE BP ON LEFT 82/53, RETAKEN AND SUBSEQUENTLY 76/52. BP ON RIGHT 89/57. PT BROUGHT BACK TO ER, REPORT GIVEN BEDSIDE TO JONEL. TEST WILL BE ON HOLD UNTIL SBP >100MMHG. ED RN TO NOTIFY .
--- NOTE | 2020-12-13 10:23 | NUR ---
DR IBARRA NOTIFIED OF LOW BP, ORDERS RECEIVED FOR NS BOLUS
[2020-12-13] MEDS ORDERED: normal saline 500ml IV soln 500 ML IV ONE (10:25)
[2020-12-13] MEDS ORDERED: METF-438 PO (13:14)
[2020-12-13] MEDS ORDERED: INSU100I25 SQ (13:14)
[2020-12-13] MEDS ORDERED: POTA8CAP20 PO (13:15)
[2020-12-13] MEDS ORDERED: PREG150C46 PO (13:15)
[2020-12-13 19:00] VITALS: BP 136/75
[2020-12-13] MEDS: amitriptyline 25mg tablet PO SCH (20:29)
[2020-12-13] MEDS: insulin glargine (Lantus) pen - multi-dose SQ SCH (21:00)
[2020-12-13 22:00] VITALS: BP 95/57
[2020-12-13] MEDS: temazepam 15mg capsule PO PRN (23:15)
[2020-12-14] VITALS (7 sets, daily range): BP systolic 87–114; BP diastolic 54–87
[2020-12-14] MEDS: normal saline 1000ml 1,000 ML IV SCH ×3 (05:00→18:20)
[2020-12-14] MEDS ORDERED: pantoprazole 40mg Tablet.DR PO STA (06:24)
--- NOTE | 2020-12-14 06:34 | NUR ---
c/p complaint called in by robert dow on nocs, gave prescribed tx with protonix per md aaron. bp 89/57 map 68, substernal c/p, no radiation, no sob, says c/p started when oob to toilet. a/ox4 hr afib 105
[2020-12-14 06:44] LABS: BASOPHILS # (AUTO) 0.1 X10'3 (0-0.2); BASOPHILS % (AUTO) 0.8 % (0-1); EOSINOPHILS # (AUTO) 0.2 X10'3 (0-0.9); EOSINOPHILS % (AUTO) 1.8 % (0-6); HEMATOCRIT 48.7 % (42.0-52.0); HEMOGLOBIN 16.4 g/dl (14.0-17.9); LYMPHOCYTES # (AUTO) 3.8 X10'3 (1.1-4.8); LYMPHOCYTES % (AUTO) 42.7 % (21-51); MEAN CORPUSCULAR HEMOGLOBIN 27.6 PG (27.0-31.0); MEAN CORPUSCULAR HGB CONC 33.6 g/dL (33.0-36.5); MEAN CORPUSCULAR VOLUME 82.2 FL (78-98); MEAN PLATELET VOLUME 9.1 FL (7.4-10.4); MONOCYTES # (AUTO) 1.1 X10'3 (0-0.9); MONOCYTES % (AUTO) 12.3 % (2-12); NEUTROPHILS # (AUTO) 3.7 X10'3 (1.8-7.7); NEUTROPHILS % (AUTO) 42.4 % (42-75); PLATELET COUNT 248 X10'3 (140-440); RED BLOOD COUNT 5.93 X10'6 (4.70-6.10); RED CELL DISTRIBUTION WIDTH 14.3 % (11.5-14.5); WHITE BLOOD COUNT 8.8 X10'3 (4.5-11.0)
[2020-12-14 07:11] LABS: ASPARTATE AMINO TRANSFERASE 23 U/L (10-37); BILIRUBIN,TOTAL 1.1 MG/DL (0.1-1.0); BLOOD UREA NITROGEN 68 MG/DL (7-18); BUN/CREATININE RATIO 30.6 (5.4-32.0); CHLORIDE 101 MMOL/L (99-107); CHOLESTEROL 73 MG/DL (0-200); CREATININE 2.22 MG/DL (0.60-1.10); GLUCOSE 141 MG/DL (70-104); MAGNESIUM 2.1 MG/DL (1.5-2.4); POTASSIUM 3.8 MMOL/L (3.5-5.1); SODIUM 139 MMOL/L (135-145); eGFR 30 ML/MIN
[2020-12-14 07:12] LABS: ALANINE AMINOTRANSFERASE 32 U/L (12-78); ALBUMIN 3.7 G/DL (3.4-5.0); ALKALINE PHOSPHATASE 52 IU/L (46-116); ANION GAP 15 (8-16); CALCIUM 9.1 MG/DL (8.5-10.1); CHOL/HDL RATIO 1.8 (0.00-4.99); HDL CHOLESTEROL 41 MG/DL (35-60); LDL CHOLESTEROL 23 MG/DL (50-100); TOTAL CARBON DIOXIDE 23.1 MMOL/L (24-32); TOTAL PROTEIN 7.5 G/DL (6.4-8.2); TRIGLYCERIDES 84 MG/DL (20-135)
[2020-12-14] MEDS: K and/or MAG REPLACEMENT MC SCH ×2 (08:00→19:15)
[2020-12-14] MEDS: aspirin 81mg, enteric-coated 1 TAB TABLET.DR PO SCH (09:00)
[2020-12-14] MEDS: atorvastatin 20mg tablet PO SCH (09:00)
[2020-12-14] MEDS: heparin, porcine 5000 units/ml vial SQ SCH ×2 (09:00→20:31)
[2020-12-14] MEDS ORDERED: FLU VACC QS2021-22(6MOS UP)/PF 60 MCG/0.5 ML SYRINGE IM ONE (10:00)
[2020-12-14] MEDS ORDERED: amiodarone 150mg/dext, iso-os 100 ML IV ONE (11:05)
--- NOTE | 2020-12-14 13:00 | NUR ---
PT eval pt, agreed to check orthostatics. pt sbp 89 at flat, sit 81sbp and unable to tolerate standing at present without dizzyness long enough top get a result
[2020-12-14] MEDS: amiodarone/D5 360MG/200ML BAG 200 ML IV SCH ×3 (13:42→23:13)
--- NOTE | 2020-12-14 14:45 | NUR ---
DM consult: Pt with T2DM, well controlled with A1c 7.2%. Written DM education with RD contact information placed in patient's chart. Will remain available. Addendum: 12/14/20 at [address] Amended: Links added.
--- NOTE | 2020-12-14 18:15 | NUR ---
Problems reprioritized. Patient report given, questions answered & plan of care reviewed with Mikaela rn.
[2020-12-14] MEDS: amitriptyline 25mg tablet PO SCH (20:31)
[2020-12-14] MEDS: temazepam 15mg capsule PO PRN (20:58)
[2020-12-14] MEDS: insulin glargine (Lantus) pen - multi-dose SQ SCH (21:46)
[2020-12-15] MEDS: normal saline 1000ml 1,000 ML IV SCH ×3 (01:00→14:20)
[2020-12-15 02:00] VITALS: BP 108/61
[2020-12-15] MEDS: amiodarone/D5 360MG/200ML BAG 200 ML IV SCH ×3 (05:12→17:27)
[2020-12-15 06:00] VITALS: BP 96/56
[2020-12-15 06:29] LABS: BASOPHILS # (AUTO) 0.1 X10'3 (0-0.2); BASOPHILS % (AUTO) 1.3 % (0-1); EOSINOPHILS # (AUTO) 0.1 X10'3 (0-0.9); HEMATOCRIT 44.2 % (42.0-52.0); HEMOGLOBIN 14.8 g/dl (14.0-17.9); LYMPHOCYTES # (AUTO) 2.4 X10'3 (1.1-4.8); MEAN CORPUSCULAR HEMOGLOBIN 27.6 PG (27.0-31.0); MEAN CORPUSCULAR HGB CONC 33.5 g/dL (33.0-36.5); MEAN CORPUSCULAR VOLUME 82.5 FL (78-98); MEAN PLATELET VOLUME 8.9 FL (7.4-10.4); MONOCYTES # (AUTO) 0.7 X10'3 (0-0.9); MONOCYTES % (AUTO) 11.8 % (2-12); NEUTROPHILS # (AUTO) 2.8 X10'3 (1.8-7.7); NEUTROPHILS % (AUTO) 45.9 % (42-75); PLATELET COUNT 226 X10'3 (140-440); RED BLOOD COUNT 5.35 X10'6 (4.70-6.10); WHITE BLOOD COUNT 6.2 X10'3 (4.5-11.0)
[2020-12-15 06:47] LABS: ALANINE AMINOTRANSFERASE 28 U/L (12-78); ALBUMIN 3.2 G/DL (3.4-5.0); ALBUMIN/GLOBULIN RATIO 0.9 (1.1-1.5); ALKALINE PHOSPHATASE 60 IU/L (46-116); ANION GAP 9 (8-16); ASPARTATE AMINO TRANSFERASE 20 U/L (10-37); BILIRUBIN,TOTAL 0.6 MG/DL (0.1-1.0); BLOOD UREA NITROGEN 41 MG/DL (7-18); BUN/CREATININE RATIO 31.3 (5.4-32.0); CALCIUM 8.3 MG/DL (8.5-10.1); CHLORIDE 104 MMOL/L (99-107); CREATININE 1.31 MG/DL (0.60-1.10); GLUCOSE 152 MG/DL (70-104); POTASSIUM 3.2 MMOL/L (3.5-5.1); SODIUM 139 MMOL/L (135-145); TOTAL PROTEIN 6.9 G/DL (6.4-8.2); eGFR 55 ML/MIN
[2020-12-15 08:00] VITALS: BP_SYST 113; BP_SYST 81; BP_SYST 97; BP_DIAS 62; BP_DIAS 64; BP_DIAS 70
[2020-12-15] MEDS: aspirin 81mg, enteric-coated 1 TAB TABLET.DR PO SCH (08:52)
[2020-12-15] MEDS: heparin, porcine 5000 units/ml vial SQ SCH (08:52)
[2020-12-15] MEDS: atorvastatin 20mg tablet PO SCH (08:52)
[2020-12-15] MEDS ORDERED: iohexol 350MG/ML 100ml bottle IV ONE (11:12)
--- NOTE | 2020-12-15 16:28 | NUR ---
Dr. Hyde verbal order to d/c jami.
[2020-12-15] MEDS ORDERED: ondansetron 4mg rapidly disintigrating tab PO PRN (16:40)
[2020-12-15] MEDS: K and/or MAG REPLACEMENT MC SCH ×2 (16:50→20:00)
[2020-12-15 17:00] VITALS: BP 97/62
[2020-12-15] MEDS: apixaban 5mg tablet PO SCH (19:47)
[2020-12-15 20:00] VITALS: BP 93/67
[2020-12-15] MEDS: temazepam 15mg capsule PO PRN (20:58)
[2020-12-15] MEDS: amitriptyline 25mg tablet PO SCH (20:59)
[2020-12-15] MEDS: insulin glargine (Lantus) pen - multi-dose SQ SCH (22:26)
[2020-12-16] MEDS: normal saline 1000ml 1,000 ML IV SCH ×3 (01:40→08:10)
[2020-12-16] MEDS: amiodarone/D5 360MG/200ML BAG 200 ML IV SCH ×2 (01:41→05:33)
--- NOTE | 2020-12-16 06:18 | NUR ---
Problems reprioritized. Patient report given, questions answered & plan of care reviewed with Nithya WISE .
[2020-12-16 07:01] LABS: BASOPHILS # (AUTO) 0.1 X10'3 (0-0.2); BASOPHILS % (AUTO) 1.1 % (0-1); EOSINOPHILS # (AUTO) 0.1 X10'3 (0-0.9); EOSINOPHILS % (AUTO) 2.1 % (0-6); HEMATOCRIT 41.7 % (42.0-52.0); HEMOGLOBIN 13.9 g/dl (14.0-17.9); LYMPHOCYTES % (AUTO) 38.2 % (21-51); MEAN CORPUSCULAR HEMOGLOBIN 27.4 PG (27.0-31.0); MEAN CORPUSCULAR HGB CONC 33.3 g/dL (33.0-36.5); MEAN CORPUSCULAR VOLUME 82.4 FL (78-98); MEAN PLATELET VOLUME 9.3 FL (7.4-10.4); MONOCYTES # (AUTO) 0.6 X10'3 (0-0.9); MONOCYTES % (AUTO) 12.3 % (2-12); NEUTROPHILS # (AUTO) 2.4 X10'3 (1.8-7.7); NEUTROPHILS % (AUTO) 46.3 % (42-75); PLATELET COUNT 201 X10'3 (140-440); RED BLOOD COUNT 5.06 X10'6 (4.70-6.10); RED CELL DISTRIBUTION WIDTH 14.1 % (11.5-14.5); WHITE BLOOD COUNT 5.1 X10'3 (4.5-11.0)
[2020-12-16 07:10] LABS: ALANINE AMINOTRANSFERASE 19 U/L (12-78); ALBUMIN/GLOBULIN RATIO 0.9 (1.1-1.5); ALKALINE PHOSPHATASE 43 IU/L (46-116); ANION GAP 7 (8-16); ASPARTATE AMINO TRANSFERASE 20 U/L (10-37); BILIRUBIN,TOTAL 0.6 MG/DL (0.1-1.0); BLOOD UREA NITROGEN 25 MG/DL (7-18); BUN/CREATININE RATIO 24.8 (5.4-32.0); CALCIUM 8.2 MG/DL (8.5-10.1); CHLORIDE 108 MMOL/L (99-107); CREATININE 1.01 MG/DL (0.60-1.10); GLUCOSE 128 MG/DL (70-104); MAGNESIUM 1.8 MG/DL (1.5-2.4); POTASSIUM 3.6 MMOL/L (3.5-5.1); SODIUM 141 MMOL/L (135-145); TOTAL CARBON DIOXIDE 25.6 MMOL/L (24-32); TOTAL PROTEIN 6.4 G/DL (6.4-8.2); eGFR 74 ML/MIN
[2020-12-16] MEDS: apixaban 5mg tablet PO SCH (07:59)
[2020-12-16] MEDS: atorvastatin 20mg tablet PO SCH (07:59)
[2020-12-16] MEDS: aspirin 81mg, enteric-coated 1 TAB TABLET.DR PO SCH (07:59)
[2020-12-16] MEDS ORDERED: AMIO200T61 PO (10:21)
[2020-12-16] MEDS ORDERED: APIX5TAB3 PO (10:21)
== END 2020-12-16 13:45 | disposition home or self-care (01) | DRG 640 ==
LOC: ER 22:05 → ED HOLD 12-13 02:16 → UNDOADMIN 12-13 02:16 → ED HOLD 12-13 02:25 → PCU 3S 12-13 19:20
PROVIDERS: ADMIT Internal Medicine; ATTEND Family Medicine
PROC: 4A02XM4 Measurement of Cardiac Total Activity, External Approach (ICD-10-PCS; principal; 2020-12-13)
PROC: 3E073KZ Introduction of Other Diagnostic Substance into Coronary Artery, Percutaneous Approach (ICD-10-PCS; 2020-12-13)
PROC: 3E02340 Introduction of Influenza Vaccine into Muscle, Percutaneous Approach (ICD-10-PCS; 2020-12-14)
PROC: B32T1ZZ Computerized Tomography (CT Scan) of Left Pulmonary Artery using Low Osmolar Contrast (ICD-10-PCS; 2020-12-15)
PROC: B3201ZZ Computerized Tomography (CT Scan) of Thoracic Aorta using Low Osmolar Contrast (ICD-10-PCS; 2020-12-15)
PROC: B32S1ZZ Computerized Tomography (CT Scan) of Right Pulmonary Artery using Low Osmolar Contrast (ICD-10-PCS; 2020-12-15)
DX: E86.0 Dehydration (principal); N17.0 Acute kidney failure with tubular necrosis; I50.32 Chronic diastolic (congestive) heart failure; I13.0 Hypertensive heart and chronic kidney disease with heart failure and stage 1 through stage 4 chronic kidney disease, or unspecified chronic kidney disease; I48.91 Unspecified atrial fibrillation; I95.9 Hypotension, unspecified; E87.6 Hypokalemia; D72.829 Elevated white blood cell count, unspecified; Z96.653 Presence of artificial knee joint, bilateral; Z20.822 Contact with and (suspected) exposure to COVID-19; G89.29 Other chronic pain; K21.9 Gastro-esophageal reflux disease without esophagitis; W18.39XA Other fall on same level, initial encounter; R07.89 Other chest pain; Y93.01 Activity, walking, marching and hiking; E11.22 Type 2 diabetes mellitus with diabetic chronic kidney disease; N18.9 Chronic kidney disease, unspecified; E03.9 Hypothyroidism, unspecified; J45.909 Unspecified asthma, uncomplicated; Z82.41 Family history of sudden cardiac death; I25.2 Old myocardial infarction; Z82.49 Family history of ischemic heart disease and other diseases of the circulatory system; Z23 Encounter for immunization; Y92.098 Other place in other non-institutional residence as the place of occurrence of the external cause; Y99.8 Other external cause status; Z88.0 Allergy status to penicillin; Z56.0 Unemployment, unspecified; Z79.899 Other long term (current) drug therapy; Z79.82 Long term (current) use of aspirin
CPT/HCPCS: 36415; 70450; 71045; 71275; 72125; 78451; 80053; 80061; 82948; 83036; 83735; 83880; 84443; 84484; 85025; 85610; 85730; 87081; 87635; 93005; 93306; 93880; 97161; 97530; 99285; A9500; G0378; J1644; J1815; J7030; J7040; Q9967

== ENCOUNTER 2021-07-04 18:38 | Emergency (ER) | payer BC, MEDICAID ==
[~2021-07-04] VITALS: Ht 188 cm; Wt 151.0 kg
[~2021-07-04 18:38] MED LIST changes: -AMIT25TA10 PO; +APIX5TAB3 PO; +FURO40TA4 PO; -HYDR-4353 PO; -IBUP-1984 PO; +INSU100I25 SQ; +METF-438 PO; -MYCOL30CR TP; +POTA8CAP20 PO; +PREG150C46 PO
[2021-07-04] MEDS ORDERED: cephalexin 250mg capsule PO ONE (21:40)
[2021-07-04 21:41] VITALS: BP 92/76
[2021-07-04] MEDS ORDERED: CEPH250T PO (21:48)
[2021-07-04] MEDS ORDERED: bacitracin 15gm ointment TP ONE (21:50)
== END 2021-07-04 22:24 | disposition home or self-care (01) ==
LOC: ER 18:39
DX: R22.41 Localized swelling, mass and lump, right lower limb (principal); I11.0 Hypertensive heart disease with heart failure; I50.9 Heart failure, unspecified; I25.2 Old myocardial infarction; J45.909 Unspecified asthma, uncomplicated; K21.9 Gastro-esophageal reflux disease without esophagitis; E11.9 Type 2 diabetes mellitus without complications; E03.9 Hypothyroidism, unspecified; G89.29 Other chronic pain; Z56.0 Unemployment, unspecified; Z88.0 Allergy status to penicillin; Z79.82 Long term (current) use of aspirin; Z79.4 Long term (current) use of insulin; Z79.899 Other long term (current) drug therapy
CPT/HCPCS: 10140; 99283; 99284

== ENCOUNTER 2021-09-03 18:55 | Inpatient (IN) | payer BC, MEDICAID ==
[~2021-09-03] VITALS: Ht 188 cm; Wt 169.6 kg
[2021-09-03 19:48] LABS: BASOPHILS # (AUTO) 0.1 X10'3 (0-0.2); BASOPHILS % (AUTO) 1.2 % (0-1); EOSINOPHILS # (AUTO) 0.1 X10'3 (0-0.9); EOSINOPHILS % (AUTO) 1.7 % (0-6); HEMATOCRIT 44.3 % (42.0-52.0); HEMOGLOBIN 14.8 g/dl (14.0-17.9); LYMPHOCYTES # (AUTO) 2.4 X10'3 (1.1-4.8); LYMPHOCYTES % (AUTO) 29.7 % (21-51); MEAN CORPUSCULAR HEMOGLOBIN 27.8 PG (27.0-31.0); MEAN CORPUSCULAR HGB CONC 33.3 g/dL (33.0-36.5); MEAN CORPUSCULAR VOLUME 83.4 FL (78-98); MONOCYTES # (AUTO) 0.8 X10'3 (0-0.9); MONOCYTES % (AUTO) 10.3 % (2-12); NEUTROPHILS # (AUTO) 4.6 X10'3 (1.8-7.7); NEUTROPHILS % (AUTO) 57.1 % (42-75); PLATELET COUNT 189 X10'3 (140-440); RED BLOOD COUNT 5.31 X10'6 (4.70-6.10); RED CELL DISTRIBUTION WIDTH 14.6 % (11.5-14.5); WHITE BLOOD COUNT 8.1 X10'3 (4.5-11.0)
[2021-09-03 19:58] LABS: ALANINE AMINOTRANSFERASE 19 U/L (12-78); ALBUMIN 3.7 G/DL (3.4-5.0); ALBUMIN/GLOBULIN RATIO 0.9 (1.1-1.5); ALKALINE PHOSPHATASE 101 IU/L (46-116); ANION GAP 8 (8-16); ASPARTATE AMINO TRANSFERASE 13 U/L (10-37); BILIRUBIN,TOTAL 1.2 MG/DL (0.1-1.0); BLOOD UREA NITROGEN 11 MG/DL (7-18); BUN/CREATININE RATIO 9.7 (5.4-32.0); CALCIUM 8.8 MG/DL (8.5-10.1); CHLORIDE 102 MMOL/L (99-107); CREATININE 1.13 MG/DL (0.60-1.10); GLUCOSE 311 MG/DL (70-104); POTASSIUM 4.1 MMOL/L (3.5-5.1); SODIUM 139 MMOL/L (135-145); TOTAL CARBON DIOXIDE 29.5 MMOL/L (24-32); TOTAL PROTEIN 7.7 G/DL (6.4-8.2); eGFR 65 ML/MIN
[2021-09-03 20:06] LABS: MAGNESIUM 1.4 MG/DL (1.5-2.4)
[2021-09-03] MEDS ORDERED: diltiazem-D5W 125mg/125ml 125 ML IV PRN (20:10)
[2021-09-03] MEDS ORDERED: diltiazem 5mg/ml 5ml inj. IV ONE (20:10)
[2021-09-03] MEDS ORDERED: diltiazem-NS 100mg/100ml 100 ML IV PRN (20:25)
[2021-09-03] MEDS ORDERED: ondansetron/PF 4mg/2ml inj IV PRN (23:20)
[2021-09-03] MEDS ORDERED: potassium CL 10mEq/100ml bag 100 ML IV PRN (23:20)
[2021-09-03] MEDS ORDERED: acetaminophen 325mg tablet PO PRN (23:20)
[2021-09-03] MEDS ORDERED: mag hydrox/Alum hydrox/simeth 30ml oral suspension PO PRN (23:20)
[2021-09-03] MEDS ORDERED: magnesium 2GM in 50ml NS 50 ML IV PRN (23:20)
[2021-09-03] MEDS ORDERED: magnesium hydroxide 30ml (MOM) UD suspension PO PRN (23:20)
[2021-09-03] MEDS ORDERED: magnesium Cl slow-release 64mg tablet PO PRN (23:20)
[2021-09-03] MEDS ORDERED: POTASSIUM BICARB 20meq eff tab 20 MEQ TABLET.EFF PO PRN (23:20)
[2021-09-03] MEDS ORDERED: magnesium 4gm in 100ml NS 100 ML IV PRN (23:20)
[2021-09-03] MEDS ORDERED: metoprolol tartrate 1mg/ml inj IV PRN (23:25)
[2021-09-03] MEDS ORDERED: glucagon, human recombinant 1mg kit SUBCUT PRN (23:25)
[2021-09-03] MEDS ORDERED: nitroGLYCERIN 0.4mg SUBLingual tab SL PRN (23:25)
[2021-09-03] MEDS ORDERED: DEXTROSE 15 GM of carb/4 tabs (each vial/BOTTLE has 4 tablets) PO PRN ×2 (23:25)
[2021-09-03] MEDS ORDERED: MESSAGE TO PHARMACY PO ONE (23:25)
[2021-09-03] MEDS ORDERED: regadenoson 0.4mg/5ml syringe IV PRN (23:25)
[2021-09-03] MEDS ORDERED: aminophylline 500mg/20ml vial IV PRN (23:25)
[2021-09-03] MEDS ORDERED: dextrose 50%-water 50ml dispensing syringe IV PRN ×2 (23:25)
[2021-09-03 23:48] LABS: HEMOGLOBIN A1C 9.3 % (4.5-6.2)
[2021-09-04] VITALS (8 sets, daily range): BP systolic 96–123; BP diastolic 55–76
[2021-09-04 00:11] LABS: POTASSIUM 3.4 MMOL/L (3.5-5.1)
--- NOTE | 2021-09-04 00:44 | NUR ---
Patient requesting a sleeping aid, per Dr. Rodriguez give Melatonin 3mg po now.
[2021-09-04] MEDS: Melatonin 3mg tablet PO SCH ×3 (00:46→21:00)
--- NOTE | 2021-09-04 05:49 | NUR ---
Patient up to the bathroom
[2021-09-04 07:07] LABS: BASOPHILS # (AUTO) 0.1 X10'3 (0-0.2); BASOPHILS % (AUTO) 1.7 % (0-1); EOSINOPHILS # (AUTO) 0.2 X10'3 (0-0.9); EOSINOPHILS % (AUTO) 3.2 % (0-6); HEMATOCRIT 40.1 % (42.0-52.0); HEMOGLOBIN 13.5 g/dl (14.0-17.9); LYMPHOCYTES % (AUTO) 32.1 % (21-51); MEAN CORPUSCULAR HEMOGLOBIN 27.9 PG (27.0-31.0); MEAN CORPUSCULAR HGB CONC 33.8 g/dL (33.0-36.5); MEAN CORPUSCULAR VOLUME 82.7 FL (78-98); MEAN PLATELET VOLUME 9.2 FL (7.4-10.4); MONOCYTES # (AUTO) 0.6 X10'3 (0-0.9); MONOCYTES % (AUTO) 9.8 % (2-12); NEUTROPHILS # (AUTO) 3.3 X10'3 (1.8-7.7); NEUTROPHILS % (AUTO) 53.2 % (42-75); PLATELET COUNT 166 X10'3 (140-440); RED BLOOD COUNT 4.84 X10'6 (4.70-6.10); RED CELL DISTRIBUTION WIDTH 14.5 % (11.5-14.5); WHITE BLOOD COUNT 6.1 X10'3 (4.5-11.0)
[2021-09-04 07:33] LABS: ALANINE AMINOTRANSFERASE 19 U/L (12-78); ALBUMIN 3.2 G/DL (3.4-5.0); ALBUMIN/GLOBULIN RATIO 0.9 (1.1-1.5); ALKALINE PHOSPHATASE 84 IU/L (46-116); ANION GAP 9 (8-16); ASPARTATE AMINO TRANSFERASE 14 U/L (10-37); BILIRUBIN,TOTAL 1.6 MG/DL (0.1-1.0); BLOOD UREA NITROGEN 11 MG/DL (7-18); CALCIUM 8.3 MG/DL (8.5-10.1); CHLORIDE 103 MMOL/L (99-107); CREATININE 0.92 MG/DL (0.60-1.10); GLUCOSE 257 MG/DL (70-104); MAGNESIUM 1.2 MG/DL (1.5-2.4); POTASSIUM 3.2 MMOL/L (3.5-5.1); SODIUM 141 MMOL/L (135-145); TOTAL CARBON DIOXIDE 28.9 MMOL/L (24-32); TOTAL PROTEIN 6.9 G/DL (6.4-8.2); eGFR 82 ML/MIN
[2021-09-04] MEDS: levoTHYROXINE 100mcg tablet PO SCH (07:35)
[2021-09-04] MEDS: docusate sod 100mg capsule PO SCH ×2 (07:36→20:36)
[2021-09-04] MEDS: apixaban 2.5mg tablet PO SCH ×2 (07:36→20:36)
[2021-09-04] MEDS: K and/or MAG REPLACEMENT MC SCH ×2 (07:36→20:37)
[2021-09-04] MEDS: pantoprazole 40mg Tablet.DR PO SCH (07:36)
[2021-09-04] MEDS: POTASSIUM BICARB 20meq eff tab 20 MEQ TABLET.EFF PO PRN ×3 (08:52→20:38)
--- NOTE | 2021-09-04 10:28 | NUR ---
Pt to Nuc Med for stress test.
--- NOTE | 2021-09-04 10:50 | NUR ---
pt at stress test
--- NOTE | 2021-09-04 12:07 | NUR ---
pt is back from stress test
--- NOTE | 2021-09-04 17:16 | NUR ---
RECD REPORT FROM [facility]
--- NOTE | 2021-09-04 18:09 | NUR ---
Problems reprioritized. Patient report given, questions answered & plan of care reviewed with TOBI WISE.
[2021-09-04] MEDS: insulin glargine (Lantus) pen - multi-dose SQ SCH (21:00)
[2021-09-04] MEDS: diltiazem SR 60mg capsule (twice daily) PO SCH (21:08)
[2021-09-05] MEDS: POTASSIUM BICARB 20meq eff tab 20 MEQ TABLET.EFF PO PRN (03:10)
--- NOTE | 2021-09-05 06:20 | NUR ---
Patient in room PCU 3023. I have received report from Magda RN & Grisel RN and had the opportunity to ask questions and assume patient care.
--- NOTE | 2021-09-05 06:30 | NUR ---
Pt refused VS check
[2021-09-05 07:38] LABS: BASOPHILS # (AUTO) 0.1 X10'3 (0-0.2); BASOPHILS % (AUTO) 1.1 % (0-1); EOSINOPHILS # (AUTO) 0.2 X10'3 (0-0.9); EOSINOPHILS % (AUTO) 3.1 % (0-6); HEMATOCRIT 43.6 % (42.0-52.0); HEMOGLOBIN 14.5 g/dl (14.0-17.9); LYMPHOCYTES # (AUTO) 1.6 X10'3 (1.1-4.8); LYMPHOCYTES % (AUTO) 26.2 % (21-51); MEAN CORPUSCULAR HEMOGLOBIN 27.9 PG (27.0-31.0); MEAN CORPUSCULAR HGB CONC 33.4 g/dL (33.0-36.5); MEAN CORPUSCULAR VOLUME 83.6 FL (78-98); MEAN PLATELET VOLUME 9.8 FL (7.4-10.4); MONOCYTES # (AUTO) 0.6 X10'3 (0-0.9); MONOCYTES % (AUTO) 9.9 % (2-12); NEUTROPHILS # (AUTO) 3.7 X10'3 (1.8-7.7); NEUTROPHILS % (AUTO) 59.7 % (42-75); PLATELET COUNT 160 X10'3 (140-440); RED BLOOD COUNT 5.21 X10'6 (4.70-6.10); RED CELL DISTRIBUTION WIDTH 14.2 % (11.5-14.5); WHITE BLOOD COUNT 6.2 X10'3 (4.5-11.0)
[2021-09-05] MEDS: K and/or MAG REPLACEMENT MC SCH ×2 (08:00→19:21)
[2021-09-05 08:02] LABS: ALANINE AMINOTRANSFERASE 18 U/L (12-78); ALBUMIN 3.2 G/DL (3.4-5.0); ALBUMIN/GLOBULIN RATIO 0.8 (1.1-1.5); ALKALINE PHOSPHATASE 92 IU/L (46-116); ANION GAP 7 (8-16); ASPARTATE AMINO TRANSFERASE 16 U/L (10-37); BILIRUBIN,TOTAL 1.7 MG/DL (0.1-1.0); BLOOD UREA NITROGEN 13 MG/DL (7-18); BUN/CREATININE RATIO 14.6 (5.4-32.0); CALCIUM 8.9 MG/DL (8.5-10.1); CHLORIDE 103 MMOL/L (99-107); CREATININE 0.89 MG/DL (0.60-1.10); GLUCOSE 242 MG/DL (70-104); MAGNESIUM 1.6 MG/DL (1.5-2.4); POTASSIUM 3.5 MMOL/L (3.5-5.1); SODIUM 139 MMOL/L (135-145); TOTAL CARBON DIOXIDE 28.9 MMOL/L (24-32); TOTAL PROTEIN 7.1 G/DL (6.4-8.2); eGFR 85 ML/MIN
[2021-09-05 09:00] VITALS: BP 119/68
[2021-09-05] MEDS: apixaban 2.5mg tablet PO SCH (09:11)
[2021-09-05] MEDS: pantoprazole 40mg Tablet.DR PO SCH (09:11)
[2021-09-05] MEDS: levoTHYROXINE 100mcg tablet PO SCH (09:11)
[2021-09-05] MEDS: acetaminophen 325mg tablet PO PRN ×2 (09:12→17:20)
[2021-09-05] MEDS: docusate sod 100mg capsule PO SCH ×2 (09:12→19:19)
[2021-09-05] MEDS: diltiazem SR 60mg capsule (twice daily) PO SCH (09:12)
[2021-09-05] MEDS: insulin Lispro (HumaLOG) vial - multi-dose SQ SCH ×3 (09:17→19:26)
[2021-09-05 11:00] VITALS: BP 111/79
--- NOTE | 2021-09-05 12:25 | NUR ---
DM Consult: Pt admit DX hypothyroidism, afib/RVR, CHF EF 35% w/ hx HTN and T2DM A1C 9.3% up from prior 7.2% 12/05' admit per EMR. Cardiology HYPNOTHERAPIST present during RD visit requests HH diet ed as well. Pt seen by RD at bedside reports no education in past regarding diet or DM. RD provided thorough written/verbal DM/HH diet eds w/ RD contact information provided. Per EMR, pt takes no meal Glu coverage; pt reports MD just educated him on starting to check Glu and adjusting insulin dosage based on levels. RD encouraged pt to contact dietitian's office if further questions/concerns. Addendum: 09/05/21 at [address] Amended: Links added.
[2021-09-05] MEDS ORDERED: apixaban 5mg tablet PO SCH (12:33)
[2021-09-05] MEDS: metoprolol succinate 25mg (24-HOUR) SR. Tablet PO SCH (13:26)
[2021-09-05 14:00] VITALS: BP 106/72
[2021-09-05] MEDS ORDERED: BACL10TA2 PO (14:00)
[2021-09-05] MEDS ORDERED: AMIT100T61 PO (14:00)
[2021-09-05] MEDS ORDERED: ESOM40CA54 PO (14:00)
[2021-09-05] MEDS ORDERED: EMPA25TA PO (14:00)
[2021-09-05] MEDS ORDERED: LEVO200T8 PO (14:00)
[2021-09-05 18:00] VITALS: BP 126/74
--- NOTE | 2021-09-05 18:15 | NUR ---
Problems reprioritized. Patient report given, questions answered & plan of care reviewed with BILLIE Recinos.
[2021-09-05] MEDS: Melatonin 3mg tablet PO SCH (21:00)
[2021-09-05] MEDS: insulin glargine (Lantus) pen - multi-dose SQ SCH (21:22)
[2021-09-05 22:00] VITALS: BP 93/49
[2021-09-06] VITALS (11 sets, daily range): BP systolic 91–132; BP diastolic 44–92
[2021-09-06] MEDS: acetaminophen 325mg tablet PO PRN ×2 (00:10→13:02)
[2021-09-06] MEDS: HYDROcodone/acetaminophen 5mg/325mg tablet PO PRN ×3 (03:32→21:15)
--- NOTE | 2021-09-06 06:14 | NUR ---
Problems reprioritized. Patient report given, questions answered & plan of care reviewed with Crys WISE. Addendum: 09/06/21 at 0615 by Grisel Eller RN Amended: Links added.
--- NOTE | 2021-09-06 06:20 | NUR ---
Patient in room PCU 3023. I have received report from BILLIE Recinos and had the opportunity to ask questions and assume patient care.
[2021-09-06 07:21] LABS: BASOPHILS # (AUTO) 0.1 X10'3 (0-0.2); EOSINOPHILS # (AUTO) 0.2 X10'3 (0-0.9); EOSINOPHILS % (AUTO) 3.2 % (0-6); HEMATOCRIT 42.5 % (42.0-52.0); HEMOGLOBIN 14.2 g/dl (14.0-17.9); LYMPHOCYTES % (AUTO) 32.4 % (21-51); MEAN CORPUSCULAR HEMOGLOBIN 27.9 PG (27.0-31.0); MEAN CORPUSCULAR HGB CONC 33.4 g/dL (33.0-36.5); MEAN CORPUSCULAR VOLUME 83.7 FL (78-98); MEAN PLATELET VOLUME 9.7 FL (7.4-10.4); MONOCYTES # (AUTO) 0.6 X10'3 (0-0.9); MONOCYTES % (AUTO) 8.9 % (2-12); NEUTROPHILS # (AUTO) 3.4 X10'3 (1.8-7.7); NEUTROPHILS % (AUTO) 54.5 % (42-75); PLATELET COUNT 185 X10'3 (140-440); RED BLOOD COUNT 5.08 X10'6 (4.70-6.10); RED CELL DISTRIBUTION WIDTH 14.6 % (11.5-14.5); WHITE BLOOD COUNT 6.2 X10'3 (4.5-11.0)
[2021-09-06 07:53] LABS: ALANINE AMINOTRANSFERASE 20 U/L (12-78); ALBUMIN 3.3 G/DL (3.4-5.0); ALBUMIN/GLOBULIN RATIO 0.9 (1.1-1.5); ALKALINE PHOSPHATASE 90 IU/L (46-116); ANION GAP 5 (8-16); ASPARTATE AMINO TRANSFERASE 16 U/L (10-37); BILIRUBIN,TOTAL 1.1 MG/DL (0.1-1.0); BLOOD UREA NITROGEN 16 MG/DL (7-18); CALCIUM 8.8 MG/DL (8.5-10.1); CHLORIDE 105 MMOL/L (99-107); CREATININE 0.94 MG/DL (0.60-1.10); GLUCOSE 158 MG/DL (70-104); MAGNESIUM 1.5 MG/DL (1.5-2.4); POTASSIUM 3.7 MMOL/L (3.5-5.1); SODIUM 140 MMOL/L (135-145); TOTAL CARBON DIOXIDE 30.4 MMOL/L (24-32); TOTAL PROTEIN 6.8 G/DL (6.4-8.2); eGFR 80 ML/MIN
[2021-09-06] MEDS: K and/or MAG REPLACEMENT MC SCH ×2 (09:21→19:45)
[2021-09-06] MEDS: levoTHYROXINE 100mcg tablet PO SCH (09:27)
[2021-09-06] MEDS: losartan 25mg tablet PO SCH (09:27)
[2021-09-06] MEDS: pantoprazole 40mg Tablet.DR PO SCH (09:27)
[2021-09-06] MEDS: metoprolol succinate 25mg (24-HOUR) SR. Tablet PO SCH (09:28)
[2021-09-06] MEDS: spironolactone 25 MG tablet PO SCH (09:28)
[2021-09-06] MEDS: docusate sod 100mg capsule PO SCH ×2 (09:28→19:45)
[2021-09-06] MEDS: insulin Lispro (HumaLOG) vial - multi-dose SQ SCH ×2 (09:36→13:08)
[2021-09-06] MEDS ORDERED: LIDOcaine 1%/PF 5ML 10 MG/ML VIAL ONE (13:58)
[2021-09-06] MEDS ORDERED: verapamil 2.5 mg/ml inj IV ONE (13:58)
[2021-09-06] MEDS ORDERED: midazolam 1 mg/ML 2ml injection ONE (13:58)
[2021-09-06] MEDS ORDERED: heparin 1,000unit/ml 10ml vial 10 ML ONE (13:59)
[2021-09-06] MEDS ORDERED: nitroGLYCERIN-Tridil 50MG/D5W 250 ML IV ONE (13:59)
[2021-09-06] MEDS ORDERED: iohexol 350MG/ML 100ml bottle IV ONE (13:59)
[2021-09-06] MEDS ORDERED: fentaNYL/PF 50MCG/1 ML 2ML syringe ONE (13:59)
[2021-09-06] MEDS ORDERED: HYDROcodone/acetaminophen 5mg/325mg tablet PO PRN (16:10)
[2021-09-06] MEDS ORDERED: baclofen 10mg tablet PO PRN (16:35)
--- NOTE | 2021-09-06 18:40 | NUR ---
Problems reprioritized. Patient report given, questions answered & plan of care reviewed with BILLIE Recinos.
[2021-09-06] MEDS ORDERED: metFORMIN 500mg tablet PO SCH (20:00)
[2021-09-06] MEDS ORDERED: amitriptyline 50mg tablet PO SCH (21:00)
[2021-09-06] MEDS: furosemide 40mg tablet PO SCH (21:14)
[2021-09-06] MEDS: pregabalin 75mg capsule PO SCH (21:14)
[2021-09-06] MEDS: Melatonin 3mg tablet PO SCH (21:14)
[2021-09-06] MEDS: insulin glargine (Lantus) pen - multi-dose SQ SCH (21:17)
[2021-09-07 02:00] VITALS: BP 101/73
[2021-09-07] MEDS: HYDROcodone/acetaminophen 5mg/325mg tablet PO PRN (03:55)
[2021-09-07 06:00] VITALS: BP 105/70
--- NOTE | 2021-09-07 06:08 | NUR ---
Problems reprioritized. Patient report given, questions answered & plan of care reviewed with Crys WISE. Addendum: 09/07/21 at 0608 by Grisel Eller RN Amended: Links added.
--- NOTE | 2021-09-07 06:10 | NUR ---
Patient in room PCU 3023. I have received report from BILLIE Recinos and had the opportunity to ask questions and assume patient care.
[2021-09-07 06:34] LABS: BASOPHILS # (AUTO) 0.1 X10'3 (0-0.2); BASOPHILS % (AUTO) 1.3 % (0-1); EOSINOPHILS # (AUTO) 0.2 X10'3 (0-0.9); EOSINOPHILS % (AUTO) 4.1 % (0-6); HEMATOCRIT 42.3 % (42.0-52.0); HEMOGLOBIN 14.1 g/dl (14.0-17.9); LYMPHOCYTES # (AUTO) 1.8 X10'3 (1.1-4.8); LYMPHOCYTES % (AUTO) 33.3 % (21-51); MEAN CORPUSCULAR HEMOGLOBIN 27.9 PG (27.0-31.0); MEAN CORPUSCULAR HGB CONC 33.3 g/dL (33.0-36.5); MEAN CORPUSCULAR VOLUME 83.9 FL (78-98); MEAN PLATELET VOLUME 9.4 FL (7.4-10.4); MONOCYTES # (AUTO) 0.5 X10'3 (0-0.9); MONOCYTES % (AUTO) 9.2 % (2-12); NEUTROPHILS # (AUTO) 2.8 X10'3 (1.8-7.7); NEUTROPHILS % (AUTO) 52.1 % (42-75); PLATELET COUNT 183 X10'3 (140-440); RED BLOOD COUNT 5.04 X10'6 (4.70-6.10); RED CELL DISTRIBUTION WIDTH 14.9 % (11.5-14.5); WHITE BLOOD COUNT 5.3 X10'3 (4.5-11.0)
[2021-09-07] MEDS ORDERED: levoTHYROXINE 100mcg tablet PO SCH (07:00)
[2021-09-07 07:08] LABS: ALANINE AMINOTRANSFERASE 26 U/L (12-78); ALBUMIN 3.4 G/DL (3.4-5.0); ALBUMIN/GLOBULIN RATIO 0.9 (1.1-1.5); ALKALINE PHOSPHATASE 90 IU/L (46-116); ANION GAP 9 (8-16); ASPARTATE AMINO TRANSFERASE 17 U/L (10-37); BLOOD UREA NITROGEN 15 MG/DL (7-18); BUN/CREATININE RATIO 18.1 (5.4-32.0); CALCIUM 8.8 MG/DL (8.5-10.1); CHLORIDE 106 MMOL/L (99-107); CREATININE 0.83 MG/DL (0.60-1.10); GLUCOSE 157 MG/DL (70-104); MAGNESIUM 1.6 MG/DL (1.5-2.4); POTASSIUM 3.6 MMOL/L (3.5-5.1); SODIUM 142 MMOL/L (135-145); TOTAL CARBON DIOXIDE 27.5 MMOL/L (24-32); eGFR > 90 ML/MIN
[2021-09-07] MEDS: K and/or MAG REPLACEMENT MC SCH (07:36)
[2021-09-07] MEDS ORDERED: EMPAGLIFLOZIN 25 MG TABLET PO SCH (08:00)
[2021-09-07] MEDS ORDERED: pantoprazole 40mg Tablet.DR PO SCH (08:00)
[2021-09-07] MEDS ORDERED: LIRAGLUTIDE 0.6 MG/0.1 ML SQ SCH (08:00)
[2021-09-07] MEDS ORDERED: potassium chloride 8mEq ER tablet PO SCH (08:00)
[2021-09-07] MEDS: HYDROcodone/acetaminophen 10/325mg tab PO PRN ×2 (08:04→13:06)
[2021-09-07] MEDS: pantoprazole 40mg Tablet.DR PO SCH (09:07)
[2021-09-07] MEDS: levoTHYROXINE 100mcg tablet PO SCH (09:07)
[2021-09-07] MEDS: docusate sod 100mg capsule PO SCH (09:07)
--- NOTE | 2021-09-07 09:07 | NUR ---
Initial: Pt admitted w/ Afib w/ RVR, and CHF per EMR. Currently on Carb control/Heart Healthy diet w/ 100% intake of meals since 09/05 though only partially meeting needs due to the restrictive nature of the diets. Will provide double protein BID to help meet needs. LBM 09/06 receiving routine colace. Will continue to monitor. Recs; 1. Continue Carb control/heart Healthy diets per MD 2. Double protein BIDBD 3. Bowel care per rx 4. Scaled wts Addendum: 09/07/21 at [address] Amended: Links added.
[2021-09-07] MEDS: spironolactone 25 MG tablet PO SCH (09:08)
[2021-09-07] MEDS: furosemide 40mg tablet PO SCH (09:08)
[2021-09-07] MEDS: pregabalin 75mg capsule PO SCH (09:08)
[2021-09-07] MEDS: metoprolol succinate 25mg (24-HOUR) SR. Tablet PO SCH (09:08)
[2021-09-07] MEDS: losartan 25mg tablet PO SCH (09:09)
[2021-09-07] MEDS: insulin Lispro (HumaLOG) vial - multi-dose SQ SCH (09:17)
[2021-09-07 10:00] VITALS: BP 117/69
[2021-09-07] MEDS ORDERED: SPIR25TA PO ×2 (10:40→13:29)
[2021-09-07] MEDS ORDERED: METO-395 PO ×2 (10:40→13:29)
[2021-09-07] MEDS ORDERED: LOSA25TA41 PO ×2 (10:40→13:29)
[2021-09-07] MEDS ORDERED: APIX5TAB3 PO (13:26)
--- NOTE | 2021-09-07 13:50 | NUR ---
DC inst provided to pt. IV DC'd, tip intact. All belongings sent w/pt. WC to lobby where pt is waiting for a cab ride home.
== END 2021-09-07 13:50 | disposition home or self-care (01) | DRG 286 ==
LOC: ER 18:55 → ED HOLD 23:22 → EDBEDREQ 09-04 04:49 → PCU 3S 09-04 17:58
PROVIDERS: ADMIT Internal Medicine; ATTEND Internal Medicine
PROC: 4A02XM4 Measurement of Cardiac Total Activity, External Approach (ICD-10-PCS; 2021-09-04)
PROC: 3E033HZ Introduction of Radioactive Substance into Peripheral Vein, Percutaneous Approach (ICD-10-PCS; 2021-09-04)
PROC: 4A023N7 Measurement of Cardiac Sampling and Pressure, Left Heart, Percutaneous Approach (ICD-10-PCS; principal; 2021-09-06)
PROC: B2111ZZ Fluoroscopy of Multiple Coronary Arteries using Low Osmolar Contrast (ICD-10-PCS; 2021-09-06)
PROC: B2151ZZ Fluoroscopy of Left Heart using Low Osmolar Contrast (ICD-10-PCS; 2021-09-06)
DX: I48.91 Unspecified atrial fibrillation (principal); I50.43 Acute on chronic combined systolic (congestive) and diastolic (congestive) heart failure; I13.0 Hypertensive heart and chronic kidney disease with heart failure and stage 1 through stage 4 chronic kidney disease, or unspecified chronic kidney disease; Z68.42 Body mass index [BMI] 45.0-49.9, adult; E03.9 Hypothyroidism, unspecified; E11.22 Type 2 diabetes mellitus with diabetic chronic kidney disease; E11.65 Type 2 diabetes mellitus with hyperglycemia; E78.5 Hyperlipidemia, unspecified; E66.01 Morbid (severe) obesity due to excess calories; I42.0 Dilated cardiomyopathy; J45.909 Unspecified asthma, uncomplicated; N18.9 Chronic kidney disease, unspecified; Z96.653 Presence of artificial knee joint, bilateral; E87.6 Hypokalemia; G89.29 Other chronic pain; K21.9 Gastro-esophageal reflux disease without esophagitis; R00.0 Tachycardia, unspecified; Z87.891 Personal history of nicotine dependence; Z82.49 Family history of ischemic heart disease and other diseases of the circulatory system; I25.2 Old myocardial infarction; Z88.0 Allergy status to penicillin; Z56.0 Unemployment, unspecified; Z79.899 Other long term (current) drug therapy; Z79.82 Long term (current) use of aspirin
CPT/HCPCS: 36415; 71045; 78452; 80053; 82948; 83036; 83735; 83880; 84132; 84443; 84484; 85025; 87081; 93005; 93017; 93306; 93458; 96365; 99152; 99153; 99291; A4620; A5120; A6258; A9500; C1769; C1894; G0378; J1644; J1815; J2250; J2785; J3010; J3490; J7030; Q9967